=== PATIENT | female | born 1975 | race Caucasian/White ===

== ENCOUNTER → 2018-06-18 15:50 | Outpatient (CLI) | payer OTHER, SELFPAY ==
[2018-06-25 13:12] LABS: HPV Reflexed? NOT INDICATED
== END ==
PROVIDERS: Visit Provider Obstetrics & Gynecology
DX: Z12.4 Encounter for screening for malignant neoplasm of cervix (principal)
CPT/HCPCS: 88175; G0145

== ENCOUNTER → 2018-06-25 07:18 | Outpatient (CLI) | payer OTHER, SELFPAY ==
--- NOTE | 2018-06-25 07:22 | BI_ITS ---
MAMMOGRAPHY - BILATERAL SCREENING REASON FOR EXAM: Female, 42 years old. Routine annual screening examination. PERTINENT HISTORY: Non-contributory. TECHNIQUE: Digital bilateral breast lindsay (3D mammographic acquisition) in the CC and MLO projections. 2-D mediolateral oblique (MLO) and craniocaudad (CC) views of both breasts were obtained. CAD: Full Field Digital Mammography with Computer Added Detection was performed. COMPARISON: Comparison is made with prior study dated June 14, 2017 and December 11, 2013. FINDINGS: Breast Composition: There are scattered areas of fibroglandular density. There are no dominant masses or suspicious calcifications. No other significant abnormalities are identified. There has been no significant change since the prior study. BI/SCREENING MAMM (CAD), BILAT IMPRESSION: Stable bilateral screening mammogram. Yearly follow-up mammogram recommended. (A) ASSESSMENT CATEGORY: BIRADS Category 1: Negative. A letter regarding these results will be sent to the patient by the facility within 30 days. Approximately 10% of breast cancers are not detected by mammography. A normal mammogram should not delay biopsy of a clinically suspicious abnormality. [id number] Electronically Signed: Yosvany Kang MD at 8:17 EDT Tel [phone], Service support ,
== END ==
PROVIDERS: Family Provider Internal Medicine; PCP Internal Medicine; Referring Provider Obstetrics & Gynecology; Visit Provider Obstetrics & Gynecology
DX: Z12.31 Encounter for screening mammogram for malignant neoplasm of breast (principal)
CPT/HCPCS: 77063; 77067

== ENCOUNTER → 2018-11-12 06:20 | Outpatient (CLI) | payer OTHER, SELFPAY ==
--- NOTE | 2018-11-12 | LES_PTH ---
PATIENT: JACLYN STEPHENSON LOC: [facility] U#:[id number] AGE/SX: 49/F ROOM: RE11/12/[address]: Dr. Eddie Baez MD : 1975 BED: DIS: SPEC #: [id number] RECD: 11/12/18 17:23 STATUS: AIDAN ALESSANDRA #: [id number] SRIDEVI: 11/12/18 00:[address]: Eddie Baez DEPT: SURGICAL PATHOLOGY RECD BY: Erik Chu ENTERED: 11/13/18 10:30 SP TYPE: Lesion OTHR DR: Dr. Nikkie Wolf MD Tissues: Skin of eyelid, NOS Procedures: Surgery Specimen Level IV HEADER OPERATION: Excision of ABDULAZIZ lesion PRE-OP DIAGNOSIS: ABDULAIZZ lesion increased in size TISSUE SUBMITTED: ABDULAZIZ lesion MICROSCOPIC DIAGNOSIS Left upper eyelid lesion, biopsy: Intradermal nevus. AM:tri 11/14/18 COMMENT Case has been reviewed in consultation with Dr. Bartholomew who concurs with the above diagnosis. IDC:SJ MICROSCOPIC DESCRIPTION Slides are reviewed. GROSS DESCRIPTION Received in fixative is one container labeled with the patient's name and designated ABDULAZIZ lesion. The specimen consists of a fragment of pabno-white skin measuring 0.1 x 0.1 x 0.1 cm. The specimen is totally submitted in one cassette. / JORI:tri 11/13/18 TC:5 CPT: 32608
== END ==
PROVIDERS: Family Provider Internal Medicine; PCP Internal Medicine; Referring Provider Ophthalmology; Visit Provider Ophthalmology
DX: D22.121 Melanocytic nevi of left upper eyelid, including canthus (principal)
CPT/HCPCS: 88305

== ENCOUNTER → 2019-08-07 14:58 | Outpatient (CLI) | payer OTHER, SELFPAY ==
--- NOTE | 2019-08-07 15:03 | BI_ITS ---
MAMMOGRAPHY - BILATERAL SCREENING REASON FOR EXAM: Female, 43 years old. Routine annual screening examination. PERTINENT HISTORY: Non-contributory. TECHNIQUE: Digital bilateral breast rico (3D mammographic acquisition) in the CC and MLO projections. 2-D mediolateral oblique (MLO) and craniocaudad (CC) views of both breasts were obtained. CAD: Full Field Digital Mammography with Computer Added Detection was performed. COMPARISON: Comparison is made with prior study dated June 25, 2018 and June 14, 2017. FINDINGS: Breast Composition: There are scattered areas of fibroglandular density. There are no dominant masses or suspicious calcifications. Stable small benign-appearing bilateral axillary lymph nodes. No other significant abnormalities are identified. There has been no significant change since the prior study. BI/SCREEN MAMM (CAD) W/RICO BILAT IMPRESSION: Stable bilateral screening mammogram. Yearly follow-up mammogram recommended. (A) ASSESSMENT CATEGORY: BIRADS Category 2: Benign. A letter regarding these results will be sent to the patient by the facility within 30 days. Approximately 10% of breast cancers are not detected by mammography. A normal mammogram should not delay biopsy of a clinically suspicious abnormality. [id number] Electronically Signed: Yosvany Kang, at 8:26 EST , Service support ,
== END ==
PROVIDERS: Family Provider Internal Medicine; PCP Internal Medicine; Referring Provider Obstetrics & Gynecology; Visit Provider Obstetrics & Gynecology
DX: Z12.31 Encounter for screening mammogram for malignant neoplasm of breast (principal)
CPT/HCPCS: 77063; 77067

== ENCOUNTER → 2020-11-28 12:47 | Outpatient (CLI) | payer OTHER, SELFPAY ==
[2020-11-28 08:51] VITALS: BMI 35.9
[2020-11-30 13:33] LABS: HPV APTIMA, High Risk Negative (Negative)
== END ==
PROVIDERS: PCP Internal Medicine; Referring Provider Obstetrics & Gynecology; Visit Provider Obstetrics & Gynecology
DX: Z12.4 Encounter for screening for malignant neoplasm of cervix (principal)
CPT/HCPCS: 87624; 88175; G0145

== ENCOUNTER → 2021-05-30 08:23 | Outpatient (CLI) | payer OTHER, SELFPAY ==
--- NOTE | 2021-05-30 08:26 | BI_ITS ---
MAMMOGRAPHY - BILATERAL SCREENING 3-D TOMOSYNTHESIS REASON FOR EXAM: Female, 45 years old. screening PERTINENT HISTORY: No significant family history. TECHNIQUE: 2-D mammograms and 3-D Tomosynthesis of the breast (s) were performed. CAD was performed. COMPARISON: 08/07/2019 FINDINGS: The breast composition is composed of scattered fibroglandular density. Scattered benign calcifications are seen. No dense spiculated masses or suspicious microcalcifications are identified. No architectural distortion is identified. There is no skin thickening or retraction. There has been no significant change since the prior study. BI/SCRN MAMM (CAD)W/RICO BILAT IMPRESSION: No mammographic signs of malignancy. Routine yearly mammograms recommended. ASSESSMENT CATEGORY: BIRADS Category 1: Negative. A letter regarding these results will be sent to the patient by the facility within 30 days. FOLLOW UP RECOMMENDATION: Yearly follow up mammogram recommended. (A) Approximately 10% of breast cancers are not detected by mammography. A normal mammogram should not delay biopsy of a clinically suspicious abnormality. Electronically Signed: Leland Palma MD at 8:27 EDT Tel , Service support ,
== END ==
PROVIDERS: PCP Internal Medicine; Referring Provider Obstetrics & Gynecology; Visit Provider Obstetrics & Gynecology
DX: Z12.31 Encounter for screening mammogram for malignant neoplasm of breast (principal)
CPT/HCPCS: 77063; 77067

== ENCOUNTER → 2022-06-01 | Outpatient (CLI) | payer OTHER, SELFPAY ==
--- NOTE | 2022-06-01 08:07 | BI_ITS ---
MAMMOGRAPHY - BILATERAL SCREENING REASON FOR EXAM: Female, 46 years old. Routine annual screening examination. PERTINENT HISTORY: Non-contributory. TECHNIQUE: Digital bilateral breast rico (3D mammographic acquisition) in the CC and MLO projections. 2-D mediolateral oblique (MLO) and craniocaudad (CC) views of both breasts were obtained. CAD: Full Field Digital Mammography with Computer Added Detection was performed. COMPARISON: Comparison is made with prior examination 05/30/2021 and 08/07/2019. FINDINGS: Breast Composition: There are scattered areas of fibroglandular density. There are no dominant masses or suspicious calcifications. Stable small benign-appearing bilateral axillary lymph nodes. No other significant abnormalities are identified. There has been no significant change since the prior study. BI/SCRN MAMM (CAD)W/RICO BILAT IMPRESSION: Stable bilateral screening mammogram. Yearly follow-up mammogram recommended. (A) ASSESSMENT CATEGORY: BIRADS Category 2: Benign. A letter regarding these results will be sent to the patient by the facility within 30 days. Approximately 10% of breast cancers are not detected by mammography. A normal mammogram should not delay biopsy of a clinically suspicious abnormality. [id number] Electronically Signed: Yosvany Kang MD at 9:24 EDT ,
== END | disposition home or self-care (01) ==
PROVIDERS: PCP Internal Medicine; Visit Provider Obstetrics & Gynecology
DX: Z12.31 Encounter for screening mammogram for malignant neoplasm of breast (principal)
CPT/HCPCS: 77063; 77067

== ENCOUNTER → 2023-06-03 | Outpatient (CLI) | payer OTHER, SELFPAY ==
--- NOTE | 2023-06-03 10:30 | BI_ITS ---
MAMMOGRAPHY - BILATERAL SCREENING REASON FOR EXAM: Female, 47 years old. Routine annual screening examination. PERTINENT HISTORY: Non-contributory. TECHNIQUE: Digital bilateral breast rico (3D mammographic acquisition) in the CC and MLO projections. 2-D mediolateral oblique (MLO) and craniocaudad (CC) views of both breasts were obtained. CAD: Full Field Digital Mammography with Computer Added Detection was performed. COMPARISON: Comparison is made with prior study dated June 01, 2022 and May 30, 2021. FINDINGS: Breast Composition: There are scattered areas of fibroglandular density. There are no dominant masses or suspicious calcifications. Stable small benign-appearing bilateral axillary lymph nodes. No other significant abnormalities are identified. There has been no significant change since the prior study. BI/SCRN MAMM (CAD)W/RICO BILAT IMPRESSION: Stable bilateral screening mammogram. Yearly follow-up mammogram recommended. (A) ASSESSMENT CATEGORY: BIRADS Category 2: Benign. A letter regarding these results will be sent to the patient by the facility within 30 days. Approximately 10% of breast cancers are not detected by mammography. A normal mammogram should not delay biopsy of a clinically suspicious abnormality. [id number] Electronically Signed: Yosvany Kang MD at 13:51 EDT ,
== END | disposition home or self-care (01) ==
PROVIDERS: PCP Internal Medicine; Referring Provider Obstetrics & Gynecology; Visit Provider Obstetrics & Gynecology
DX: Z12.31 Encounter for screening mammogram for malignant neoplasm of breast (principal)
CPT/HCPCS: 77063; 77067

== ENCOUNTER → 2023-06-07 | Outpatient (CLI) | payer OTHER, SELFPAY ==
[2023-06-07 10:19] LABS: Absolute Lymphocyte Count 1.74 X10^3/uL (0.83-4.51); Absolute Neutrophil Count 6.1 X10^3/uL (2.0-7.7); Basophil# 0.04 X10^3/uL; Basophil% 0.5 % (0-1); Eosinophil# 0.11 X10^3/uL; Eosinophils% 1.2 % (0-5); Hematocrit 42.6 % (37-47); Hemoglobin 13.5 g/dL (12.0-15.0); Lymphocyte # 1.74 X10^3/ul (0.83-4.51); Lymphocyte % 19.7 % (19-41); Mean Corp Hgb Conc 31.7 g/dL (32-36); Mean Corpuscular Hgb 29.3 pg (27.0-32.0); Mean Corpuscular Volume 92.6 fL (81-99); Mean Platelet Vol. 8.5 fl (6.2-12.0); Monocyte# 0.73 X10^3/uL; Monocyte% 8.3 % (0-10); NRBC Flagged by Analyzer 0 % (0-5); Neutrophil # 6.14 X10^3/uL (2.7-7.7); Neutrophil % 69.6 % (47-70); Platelet Count 430 K/mm3 (150-450); RBC Distribution Width CV 12.8 % (11.6-14.6); RBC Distribution Width SD 43.2 fl (35.1-43.9); White Blood Count 8.8 K/mm3 (4.4-11.0)
== END | disposition home or self-care (01) ==
PROVIDERS: PCP Internal Medicine; Referring Provider Obstetrics & Gynecology; Visit Provider Obstetrics & Gynecology
DX: N85.2 Hypertrophy of uterus (principal)
CPT/HCPCS: 36415; 85025

== ENCOUNTER → 2023-06-13 | Outpatient (CLI) | payer OTHER, SELFPAY ==
--- NOTE | 2023-06-13 13:03 | US_ITS ---
STUDY: ULTRASOUND OF THE FEMALE PELVIS - COMPLETE REASON FOR EXAM: Female, 47 years old. Pelvic pain and fullness LMP: 05/22/2023 TECHNIQUE: Transabdominal and Transvaginal TECHNICAL QUALITY: Adequate. COMPARISON: None. FINDINGS: The uterus is anteverted and is in a midline position. The uterus measures 10.0 x 5.0 x 4.4 cm. Normal uterine cervix. The endometrium measures 6.6 mm in thickness, and is hyperechoic. There is no demonstrated endometrial mass. There is no demonstrated myometrial mass. I.U.D. - The patient does not have an I.U.D. The right ovary is visualized. The right ovary measures 3.3 x 2.8 x 2.1 cm. There is no right ovarian cyst or ovarian mass. There is no visualized right adnexal mass or complex lesion. There is normal arterial and normal venous vascularity. The left ovary is visualized. The left ovary measures 3.5 x 2.4 x 1.9 cm. There is no left ovarian cyst or ovarian mass. There is no visualized left adnexal mass or complex lesion. There is normal arterial and normal venous vascularity. There is no fluid in the cul-de-sac. The bladder is normally distended with capacity of 534 mL. No significant postvoid residual noted US/Pelvic w/ Transvaginal IMPRESSION: No suspicious sonographic findings Electronically Signed: Blayne Gomez MD at 18:25 EDT ,
== END | disposition home or self-care (01) ==
LOC: US 13:03
PROVIDERS: PCP Internal Medicine; Referring Provider Obstetrics & Gynecology; Visit Provider Obstetrics & Gynecology
DX: N85.2 Hypertrophy of uterus (principal)
CPT/HCPCS: 76830; 76856

== ENCOUNTER → 2024-06-11 | Outpatient (CLI) | payer OTHER, SELFPAY ==
--- NOTE | 2024-06-11 07:56 | BI_ITS ---
MAMMOGRAPHY - BILATERAL SCREENING 3-D TOMOSYNTHESIS REASON FOR EXAM: Female, 48 years old. screening mammogram PERTINENT HISTORY: No significant family history. TECHNIQUE: 2-D mammograms and 3-D Tomosynthesis of the breast (s) were performed. CAD was performed. COMPARISON: 06/03/2023 FINDINGS: The breast composition is composed of scattered fibroglandular density. Scattered benign calcifications are seen. No dense spiculated masses or suspicious microcalcifications are identified. No architectural distortion is identified. There is no skin thickening or retraction. There has been no significant change since the prior study. BI/SCRN MAMM (CAD)W/RICO BILAT IMPRESSION: No mammographic signs of malignancy. Routine yearly mammograms recommended. ASSESSMENT CATEGORY: BIRADS Category 1: Negative. A letter regarding these results will be sent to the patient by the facility within 30 days. FOLLOW UP RECOMMENDATION: Yearly follow up mammogram recommended. (A) Approximately 10% of breast cancers are not detected by mammography. A normal mammogram should not delay biopsy of a clinically suspicious abnormality. Electronically Signed: Leland Palma MD at 13:54 EDT ,
== END | disposition home or self-care (01) ==
PROVIDERS: PCP Internal Medicine; Referring Provider Obstetrics & Gynecology; Visit Provider Obstetrics & Gynecology
DX: Z12.31 Encounter for screening mammogram for malignant neoplasm of breast (principal)
CPT/HCPCS: 77063; 77067

== ENCOUNTER → 2025-06-07 | Outpatient (CLI) | payer SELFPAY ==
[2025-06-10 16:09] LABS: HPV APTIMA, High Risk Negative (Negative)
== END | disposition home or self-care (01) ==
LOC: LABSPEC 12:12
PROVIDERS: PCP Internal Medicine; Referring Provider Obstetrics & Gynecology; Visit Provider Obstetrics & Gynecology
DX: Z12.4 Encounter for screening for malignant neoplasm of cervix (principal)
CPT/HCPCS: 87624; 88175; G0145

== ENCOUNTER → 2025-06-25 | Outpatient (CLI) | payer SELFPAY ==
--- NOTE | 2025-06-25 08:15 | BI_ITS ---
EXAM: SCRN MAMM (CAD)W/RICO BILAT DATE: 06/25/2025 CLINICAL HISTORY: F, Age 49 y/o , SCREENING MAMMOGRAM TECHNIQUE: Procedure Code: [id number] Modality: MG Procedure: SCRN MAMM (CAD)W/RICO BILAT COMPARISON: Prior exam(s) dated 06/11/2024, 06/03/2023. FINDINGS: TISSUE DENSITY: There are scattered areas of fibroglandular density. Bilateral Breast Mammographic Findings: No significant masses, calcifications or other abnormalities are identified. BI/SCRN MAMM (CAD)W/RICO BILAT IMPRESSION: There is no mammographic evidence of malignancy. OVERALL FINAL ASSESSMENT BI-RADS 1: NEGATIVE. RECOMMENDATION: Routine annual follow-up in 1 Year Additional Recommendation none A letter with findings and recommendations will be mailed to the patient. Reading Location: [id number]
--- OUTSIDE RECORDS SUMMARY | 2025-06-25 08:35 | XMS RPT_ITS | CCD ---
Author Organization [facility] Care Team Providers Care V Belt Finisher Name Role Phone Joseph Wolf MD Primary Care Provider Dr. Joesph Wolf Primary Care Provider Dr. Joesph Wolf Referring Provider Dr. Haylie Clark Attending Provider Joesph Wolf MD Primary Care Provider Joesph Wolf MD Primary Care Provider Joesph Wolf Primary Care Provider SARAH WILLS Attending Unavailable JOESPH WOLF Primary Care Unavailable Dr. Joesph Wolf MD Primary Care Physician Dr. Joesph Wolf MD Referring Provider Dr. Haylie Clark MD Attending Physician Dr. Haylie Clark MD Referring Provider Joesph Wolf Primary Care Unavailable Haylie Clark Attending Unavailable Haylie Clark Referring Unavailable Joesph Wolf Primary Care Unavailable Haylie Clark Attending Unavailable Haylie Clark Referring Unavailable Joesph Wolf Primary Care Unavailable Joesph Wolf Referring Unavailable Haylie Clark Attending Unavailable Allergies Allergy Classification Reported Allergen(s) Allergy Type Date of Onset Reaction(s) Facility (10 sources) environmental [Other] Propensity to adverse reactions 200 5 [facility] Work Phone: Medications Current Medications Medication Drug Class(es) Dates Sig (Normalized) Sig (Original) levocetirizine dihydrochloride 5 mg oral tablet (13 sources) Histamine-1 Receptor Antagonist Start: 06-24-2024 take 1 tablet by mouth once daily as needed levocetirizine (XYZAL) 5 mg tablet Take 1 tablet by mouth once daily as needed. In the evening 90 tablet 3 06/24/2024 Active Start: 05-31-2021 End: 06-24-2024 take 1 tablet by mouth once daily as needed levocetirizine (XYZAL) 5 mg tablet Take 1 tablet by mouth once daily as needed. In the evening 30 tablet 11 12/20/2023 06/24/2024 Discontinued Comment on above: Take 1 tablet by kasey th once daily as needed. In the evening levothyroxine sodium 0.112 mg oral tablet (20 sources) l-Thyroxine Start: 06-24-20 take 1 tablet by mouth once daily for thyroid dysfunction levothyroxine (LEVOXYL) 112 mcg tablet Indications: Acquired hypothyroidism Take 1 tablet by mouth once daily. Take on empty stomach. For thyroid. Mylan brand pelase 90 tablet 3 06/24/2024 Active Start: 06-25-2022 Start: 06-25-2022 take 112 ug by mouth once daily Levothyroxine Active 112 MCG PO DAILY June 25, 2022 2:31pm Start: 10-25-2021 End: 06-24-2024 levothyroxine (LEVOXYL) 112 mcg tablet Indications: Acquired hypothyroidism Take 1 tablet by mouth once daily. Take on empty stomach. For thyroid. Patient should start on October 25, 2023. 90 tablet 3 10/25/2023 06/24/2024 Discontinued Start: 11-28-2020 End: 06-25-2022 take 1 tablet by mouth once daily Levothyroxine 75 mcg tablet Discontinued 75 ug PO DAILY November 28, 2020 12:00am June 25, 2022 2:31pm Comment on above: Take 1 tablet by kasey th once daily. Take on empty stomach. For thyroid. Take 1 tablet by kasey th once daily. Take on empty stomach. For thyroid. Patient should start on October 25, 2023. mometasone furoate 0.05 mg/actuat metered dose nasal spray (12 sources) Corticosteroid Start: take 2 spray(s) by mouth once daily mometasone (NASONEX) 50 mcg/actuation nasal spray Use 2 Sprays in the nose once daily. Rinse mouth after use. 1 g 5 12/20/2023 Active Start: 05-19-2019 End: 12-20-2023 take 2 spray(s) by mouth once daily mometasone (NASONEX) 50 mcg/actuation nasal spray Use 2 Sprays in the nose once daily. Rinse mouth after use. 1 Bottle 11 05/19/2019 12/20/2023 Discontinued Comment on above: Use 2 Sprays in the nose once daily. Rinse mouth after use. Problems Active Problems Problem Classification Problem Date Documented Da te Episodic/Chronic Administrative/social admission (2 sources) Persons encountering health services in other specified circumstances; Translations: [Persons encountering health services in other specified circumstances] Onset: 12-24-2024 Episodic Allergic reactions (1 source) Solar degeneration; Translations: [Other skin changes due to chronic exposure to nonionizing radiation] 12-24-2024 Episodic Diabetes mellitus without complication (3 sources) Impaired fasting glycemia; Translations: [Impaired fasting glucose] 06-03-2023 Episodic Genitourinary symptoms and ill-defined conditions (8 sources) Genuine stress incontinence; Translations: [Stress incontinence (female) (male)] 11-28-2020 Chronic Comment on above: urogyn consult if de sired Immunizations and screening for infectious disease (1 source) Hepatitis B screening required; Translations: [Encounter for screening for other viral diseases] 06-22-2024 Episodic Malaise and fatigue (1 source) Fatigue; Translations: [Other fatigue] 11-02-2023 Episodic Nutritional deficiencies (1 source) Vitamin D deficiency; Translations: [Vitamin D deficiency, unspecified] 06-24-2024 Chronic Other aftercare (1 source) Long-term current use of drug therapy; Translations: [Other 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) drug therapy] 06-24-2024 Episodic Other and unspecified benign neoplasm (1 source) Multiple benign melanocytic nevi ; Translations: [Melanocytic nevi of right upper limb, including shoulder] 12-24-2024 Episodic Other and unspecified benign neoplasm (1 source) Senile angioma; Translations: [Hemangioma of skin and subcutaneous tissue] 12-24-2024 Episodic Other and unspecified benign neoplasm (2 sources) Melanocytic nevi of right upper limb, including shoulder; Translations: [Melanocytic nevi of right upper limb, including shoulder] Onset: 12-24-2024 Episodic Other and unspecified benign neoplasm (2 sources) Melanocytic nevi of trunk; Translations: [Melanocytic nevi of trunk] Onset: 12-24-2024 Episodic Other and unspecified benign neoplasm (2 sources) Melanocytic nevi of left upper limb, including shoulder; Translations: [Melanocytic nevi of left upper limb, including shoulder] Onset: 12-24-2024 Episodic Other and unspecified benign neoplasm (2 sources) Melanocytic nevi of right lower limb, including hip; Translations: [Melanocytic nevi of right lower limb, including hip] Onset: 12-24-2024 Episodic Other and unspecified benign neoplasm (2 sources) Melanocytic nevi of left lower limb, including hip; Translations: [Melanocytic nevi of left lower limb, including hip] Onset: 12-24-2024 Episodic Other and unspecified benign neoplasm (2 sources) Hemangioma of skin and subcutaneous tissue; Translations: [Hemangioma of skin and subcutaneous tissue] Onset: 12-24-2024 Episodic Other female genital disorders (4 sources) Enlarged uterus; Translations: [Hypertrophy of uterus] 06-07-2023 Episodic Comment on above: cbc and ultrasound o rdered Other female genital disorders (3 sources) Hypertrophy of uterus; Translations: [Hypertrophy of uterus] 06-07-2023 Episodic Other nutritional; endocrine; and metabolic disorders (4 sources) Obesity; Translations: [Other obesity due to excess calories] Onset: 01-14-2018 01-14-2018 Chronic Other nutritional; endocrine; and metabolic disorders (9 sources) Obesity caused by energy imbalance; Translations: [Other obesity due to excess calories] Onset: 01-14-2018 01-14-2018 Chronic Other nutritional; endocrine; and metabolic disorders (7 sources) Obese class II; Translations: [Obesity, unspecified] Onset: 06-12-2023 06-12-2023 Chronic Other screening for suspected conditions (not mental disorders or infectious disease) (17 sources) Patient encounter status; Translations: [Encounter for screening for lipoid disorders] Onset: 09-22-2007 Resolved: 06-14-2016 Episodic Other skin disorders (1 source) Solar lentigo; Translations: [Other melanin hyperpigmentation] 12-24-2024 Episodic Other skin disorders (1 source) Seborrheic keratosis; Translations: [Other seborrheic keratosis] 12-24-2024 Episodic Other skin disorders (1 source) Scar; Translations: [Scar conditions and fibrosis of skin] 12-24-2024 Episodic Other skin disorders (1 source) Milia; Translations: [Epidermal cyst] 12-24-2024 Episodic Other skin disorders (1 source) Multiple skin tags; Translations: [Other hypertrophic disorders of the skin] 12-24-2024 Episodic Other skin disorders (2 sources) Other melanin hyperpigmentation; Translations: [Other melanin hyperpigmentation] Onset: 12-24-2024 Episodic Other skin disorders (2 sources) Other seborrheic keratosis; Translations: [Other seborrheic keratosis] Onset: 12-24-2024 Episodic Other skin disorders (2 sources) Scar conditions and fibrosis of skin; Translations: [Scar conditions and fibrosis of skin] Onset: 12-24-2024 Episodic Other skin disorders (2 sources) Epidermal cyst; Translations: [Epidermal cyst] Onset: 12-24-2024 Episodic Other skin disorders (2 sources) Other hypertrophic disorders of the skin; Translations: [Other hypertrophic disorders of the skin] Onset: 12-24-2024 Episodic Other upper respiratory disease (11 sources) Allergic rhinitis; Translations: [Allergic rhinitis, unspecified] Onset: 03-18-2007 06-14-2016 Chronic Thyroid disorders (17 sources) Acquired hypothyroidism; Translations: [Hypothyroidism, unspecified] Chronic Varicose veins of lower extremity (16 sources) Varicose veins of lower extremity; Translations: [Varicose veins of bilateral lower extremities with other complications] Onset: 12-28-2011 Resolved: 06-14-2016 12-28-2011 Episodic Past or Other Problems Problem Classification Problem Date Documented Da te Episodic/Chronic Conditions associated with dizziness or vertigo (11 sources) Dizziness and giddiness; Translations: [Dizziness and giddiness] Onset: 06-14-2016 08-22-2021 Episodic Unclassified (5 sources) endovenous laser ablation therapy 03-24-2022 Comment on above: left leg Results Test Name Value Interpretation Reference Range Facility PAP IG HPV APTIMA 16/18,45on 06-10-2025 ADEQ Comment Normal . [facility] Comment on above: Order Comment: Speci men Comment: [id number] Specimen Comment: No. of containers..01 ThinPrep Vial Result Comment: Sati sfactory for evaluation. No endocervical component is identified. Performed By: #### L 7400.0280 #### [facility] [address] [place], [address] COMM . Normal . [facility] Comment on above: Order Comment: Speci men Comment: [id number] Specimen Comment: No. of containers..01 ThinPrep Vial Performed By: #### L 7400.0280 #### [facility] [address] [place], [address] COMMENT Comment Normal . [facility] Comment on above: Order Comment: Speci men Comment: [id number] Specimen Comment: No. of containers..01 ThinPrep Vial Result Comment: This liquid based ThinPrep(R) pap test was interpreted using the [employer] Near Me(R) Genius(TM) Cervical Algorithm whole slide imaging system. Performed By: #### L 7400.0280 #### [facility] [address] [place], [address] DIAG Comment Normal . [facility] Comment on above: Order Comment: Speci men Comment: [id number] Specimen Comment: No. of containers..01 ThinPrep Vial Result Comment: NEGA TIVE FOR INTRAEPITHELIAL LESION OR MALIGNANCY. Performed By: #### L 7400.0280 #### [facility] [address] [place], [address] HPV APTIMA, HR Negative Normal Negative [facility] Comment on above: Order Comment: Speci men Comment: [id number] Specimen Comment: No. of containers..01 ThinPrep Vial Result Comment: This nucleic acid amplification test detects fourteen high- risk HPV types (16,18,31,33,35,39,45,51,52,56,58,59,66,68) without differentiation. Performed By: #### L 7400.0280 #### [facility] [address] [place], [address] HPV Rena Rfx Comment Normal . [facility] Comment on above: Order Comment: Speci men Comment: [id number] Specimen Comment: No. of containers..01 ThinPrep Vial Result Comment: Crit pallavi not met, HPV Genotype not performed. Performed at: - [facility] [id number] Regional Facilities Specialist: Leigh Schilling MD, Phone: [phone] Performed at: = - [facility] [id number] Regional Facilities Specialist: Leigh Schilling MD, Phone: [phone] Performed By: #### L 7400.0280 #### [facility] [address] [place], [address] PAPSMR Comment Normal . [facility] Comment on above: Order Comment: Speci men Comment: [id number] Specimen Comment: No. of containers..01 ThinPrep Vial Result Comment: The Pap smear is a screening test designed to aid in the detection of premalignant and malignant conditions of the uterine cervix. It is not a diagnostic procedure and should not be used as the sole means of detecting cervical cancer. Both false-positive and false-negative reports do occur. Performed By: #### L 7400.0280 #### [facility] [address] [place], [place], [id number] PERFORM Comment Normal . [facility] Comment on above: Order Comment: Speci men Comment: [id number] Specimen Comment: No. of containers..01 ThinPrep Vial Result Comment: Bri Mullins, Fire Prevention Forester (ASCP) Performed By: #### L 7400.0280 #### [facility] [address] [place], [address] Cervical or vaginal specimen microscopic examination by liquid based cytology (reportOrdered By: Haylie Clark on 06-07-2025 Cytology report Cyto stain.thin prep Doc (Cvx/Vag) Comment . [facility] Comment on above: Criteria not met, HP V Genotype not performed.Performed at: WB - [facility] [id number] Director: Leigh Schilling MD, Phone: [phone] at: =G - [facility] [address] [id number] Director: Leigh Schilling MD, Phone: [phone] Cervical or vagninal specime n microscopic examination by cytology stain (reported asOrdered By: Haylie Clark on 06-07-2025 Cytology report Cyto stain Doc (Cvx/Vag) Comment . [facility] Comment on above: The Pap smear is a s creening test designed to aid in thedetection of premalignant and malignant conditions of theuterine cervix. It is not a diagnostic procedure andshould not be used as the sole means of detecting cervicalcancer. Both false-positive and false-negative reports dooccur. Detection in cervical specim en of any of human papilloma virus (HPV) 16, 18, 31, 33,Ordered By: Haylie Clark on 06-07-2025 HPV 16+18+31+33+35+39+45+5 1+52+56+58+59+66+68 DNA Probe+sig amp Ql (Cvx) Negative Negative [facility] Comment on above: This nucleic acid am plification test detects fourteen high- risk HPV types (16,18,31,33,35,39,45,51,52,56,58,59,66,68)without differentiation. Laboratory - CytologyOrdered By: Haylie Clark on 06-07-2025 Fire Prevention Forester Cyto stain Nom (Cvx/Vag) [ID] Comment . [facility] Comment on above: Bri Mullins, Cytolog ist (ASCP) Laboratory - Miscellaneous t estsOrdered By: Haylie Clark on 06-07-2025 Service comment (Unsp spec) [Interp] . . [facility] No Panel InformationOrdered By: Haylie Clark on 06-07-2025 Pap Smear Specimen Adequacy Comment . [facility] Comment on above: Satisfactory for omid luation. No endocervical component is identified. Electricity Trading Analyst Office Visit Reporton 06-07-2025 Electricity Trading Analyst Office Visit Report [facility] [address], [address] [place] [address] OFFICE VISIT Date of Service: 06/07/25 MR#: [id number] Acct: [id number] Name: MICHELA SCHMIDT Rep #: [id number] : 1975 Provider: Dr. 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) Acquisition Lead Required: No Is patient in pain?: No Allergies No Known Allergies Allergy (Verified 06/07/25 10:08) Medications ???Medication ???Instructions ???Recorded ???Confirmed ???Type levothyroxine 75 mcg tablet 112 mcg PO DAILY 06/25/22 06/07/25 History Is last menstrual period known: Yes Last Menstrual Period: 05/25/25 Post menopausal: No Patient : No : No Control Method: Vasectomy [facility] Medical History Thyroid disorder endovenous laser ablation therapy Surgical History H/O vein stripping H/O section History of wisdom tooth extraction, class IV edentulism History of cholecystectomy ( 1996) Family History Father Heart disease Hypertension Diabetes Mother Hypertension Diabetes Hypercholesteremia Social History household members: family housing: house number of children: 3 current occupational status: employed 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 Date Name GA/Weeks Outcome Route Bth Weight Infant Gen Labor Lgth Anesthesia Del Locatn Provider FOB Unknown 06/26/2003 [place] Unknown 01/25/2003 Jose G Unknown 03/12/2011 [place] HPI Encounter for routine gynecological examination Details: MICHELA SCHMIDT is a 49 year old who presents for annual exam. Last PAP: 11/28/2020 - normal History of abnormal PAP: Last mammogram: 06/11/2024 - normal History of abnormal mammogram: Colon cancer screening: colonoscopy - at age 46, negative results Other preventative health care screenings: PCP Maryann Female Reproductive History Last Menstrual Period: 05/25/25 Cycle Length: 21-35 Bleeding Duration: 5 Questions: metrorrhagia: No, sexually active: Yes, dyspareunia: No and PCB: No Menopausal Symptoms: No hot flashes, No night sweats, No weight change, No mood changes, No difficulty concentrating, No sleep problems and No change in libido ROS Const Constitutional: Reports as per HPI; Denies fatigue, increased appetite, poor appetite, night sweats, weight gain or weight loss Cardio Card: Denies chest pain Resp Resp: Denies cough or dyspnea GI GI: Reports as per HPI; Denies abdominal pain, bloating, constipation, nausea or vomiting : Reports as per HPI, urinary incontinence and other; Denies difficulty voiding, dysuria, hematuria, hot flashes, nipple discharge, pelvic pain, prolapse symptoms, urinary frequency, urinary urgency, vaginal discharge, vaginal dryness, vaginal odor or vaginal pruritus Skin Skin/Breast: Denies changing lesions, breast mass, breast pain, breast skin changes or nipple discharge Psych Psych: Denies anxiety, change in libido, depression or difficulty concentrating Exam Const General: cooperative, healthy appearing, comfortable, no acute distress, well developed and well groomed HENMT Head: normal to inspection and normocephalic Ears: hearing grossly normal bilaterally and external ears normal Nose: external nose normal Face and sinus: normal facial exam Neck Neck: normal visual inspection, full ROM and no lymphadenopathy Thyroid: thyroid normal Chest Chest palpation inspection: normal inspection of the chest Breast inspection: normal inspection of the breasts and normal inspection of the axillae Breast palpation: normal palpation of the breasts, normal palpation of the axillae and no axillary lymphadenopathy Resp Effort Inspection: normal respiratory effort GI Inspection: normal to inspection and non-distended Palpation: soft, no hepatosplenomegaly and no guarding General: bladder normal to palpation External Female Exam: normal external appearance, normal appearance o (more content not included)... Normal [facility] 37on 12-24-2024 37 Serica cream Mineral suncreen Normal [facility] Office Visiton 12-24-2024 Follow-up visit [id number] Mey Schmidt diogenes 1975 F Date Provider Department Center 12/24/2024 SARAH FIGUEROA [facility] None No family history on file Level of Service:01166 HI OFFICE/OUTPATIENT ESTABLISHED LOW [facility] 20 MIN Reason for Visit and Comments: Follow-up [[id number]] - [facility]-11/20/2022[place] [facility] Progress Noteon 12-24-2024 Progress Note DATE OF SERVICE: 12/24/2024 PATIENT NAME: Michela Schmidt : 1975 AGE: 49 y.o. CLINIC NUMBER: [id number] Visit type: Established patient Chief Complaint Patient presents with Follow-up [facility]-11/20/2022,[place] Subjective HISTORY OF PRESENT ILLNESS: This is a 49 y.o. female who presents for evaluation of skin lesions; last seen 11/20/2022 with Sarah Wills PA-C. Patient has no specific spots in particular she wants looked at. Patient has no h/o of ATN. Patient has no h/o of AKs. Patient has no personal h/o skin cancer. Patient has no family h/o melanoma. History of pacemaker/ defibrillator? No History of HIV/ Hep C? No Allergies to Lidocaine, Epinephrine, Latex or Adhesive? No Review of Systems There were no vitals filed for this visit. PHYSICAL EXAM GENERAL APPEARANCE:?Alert & oriented x3, pleasant. Well developed, well nourished. PSYCH: appropriate mood and affect DERMATOLOGY: (all measurements are in cm, unless otherwise noted) 1. Actinic skin damage Skin shows depigmentation, telangiectasia's, and reduced elasticity The nature of sun-induced photo-aging and skin cancers was discussed. Sun avoidance, protective clothing, and the use of Broad spectrum (UVA and UVB) minimum 30-SPF sunscreens is advised. Apply sunscreen 30 minutes prior to sun exposure, and reapply every 2 hours and as needed after swimming or sweating. Observe closely for skin damage/changes, and call if such occurs. Recommended Adapalene 0.1% gel-sample trade given to use 2 times weekly at night then increase as tolerated. Stressed importance of wearing sunscreen SPF 30 or greater every morning Sample of Miranda Posay Jenna cream to help with pigmentation under her eyes 2. Encounter for skin care SKIN TYPE: II Educated on signs of skin cancer, skin cancer causes, prevention, and risk of developing skin cancers in the future. Sun protection measures reviewed, recommended monthly self skin exams and annual full skin exam. Mineral sunscreen are recommended to avoid burning of the eyes-several OTC options given along with samples to try. 3. Solar lentigo Light brown well-circumscribed macule(s) Educated and reassured, benign finding secondary to sun exposure. Patient educated on the proper use of sunscreen, SPF, and how often to reapply. Recommend use of OTC mineral sun block, like Neutrogena or La-Jerry Posay. Patient advised to look for zinc or titanium as the active ingredient(s). Try to limit sun exposure to motor tune up specialist or late evening hours. Patient advised to perform self-skin checks and call for follow up appointment if any new or concerning lesions detected. 4. Seborrheic keratosis (7) Generalized, Left Forearm - Posterior, Left Hand - Posterior, Left Wrist - Posterior, Right Forearm - Posterior, Right Hand - Posterior, Right Wrist - Posterior Pabon-brown waxy papule(s) and plaque(s) Reassured that this is a benign lesion and does not require any treatment. Educated that if the lesion changes color, becomes larger, bleeds, becomes bothersome or painful then it should be reevaluated. Patient expresses understanding and is agreeable to plan. 5. Multiple benign melanocytic nevi of both upper extremities, both lower extremities, and trunk Scattered uniform pabon/brown nevoid macules and papules; showing normal patterns with dermoscopy Reassured that this is a benign lesion and does not require any treatment. Educated that if the lesion changes color, becomes larger, bleeds, becomes bothersome or painful then it should be reevaluated. Patient expresses understanding and is agreeable to plan. 6. Philip angioma Bright red vascular papule(s) Reassured that this is a benign lesion and does not require any treatment. Educated that if the lesion changes color, becomes larger, bleeds, becomes bothersome or painful then it should be reevaluated. Patient expresses understanding and is agreeable to plan. 7. Scar Right Breast Erythematous linear recent scar secondary to mole removed from [facility] Reassured that this is a benign lesion and does not require any treatment. Educated that if the lesion changes color, becomes larger, bleeds, becomes bothersome or painful then it should be reevaluated. Patient expresses understanding and is agreeable to plan. Recommended Serica scar gel cream and to massage area several times daily. Coupon given. 8. Milia Mid Forehead Firm white papule(s) Reassured that this is a benign lesion and does not require any treatment. Educated that if the lesion changes color, becomes larger, bleeds, becomes bothersome or painful then it should be reevaluated. Patient expresses understanding and is agreeable to plan. 9. Skin tags, multiple acquired (2) Neck - Anterior, Right Breast Flesh colored pedunculated papule(s) without signs of irritation/inflammatio n. Reassured that this is a benign lesion and does not require any treatment. Educated that if (more content not included)... Normal [facility] Absolute lymphocyte countOrd ered By: Haylie Clark on 06-07-2023 Lymphocytes Auto (Unsp spec) [#/Vol] 1.74 10*3/uL 0.83-4.51 [facility] Basophil percentageOrdered B y: Haylie Clark on 06-07-2023 Basophils/100 WBC (Bld) 0.5 % 0-1 [facility] Eosinophils/100 WBC (Bld) 1.2 % 0-5 [facility] Neutrophils (Bld) [#/Vol] 6.1 10*3/uL 2.0-7.7 [facility] Neutrophils/100 WBC (Bld) 69.6 % 47-70 [facility] WBC (Bld) [#/Vol] 8.8 10*3/uL 4.4-11.0 [facility] Blood erythrocytes count (nu mber/volume)Ordered By: Haylie Clark on 06-07-2023 RBC (Bld) [#/Vol] 4.60 10*6/uL 4.2-5.4 [facility] Blood hemoglobin measurement (mass/volume)Ordered By: Haylie Clark on 06-07-2023 Hemoglobin (Bld) [Mass/Vol] 13.5 g/dL 12.0-15.0 [facility] Blood lymphocytes/100 leukoc ytesOrdered By: Haylie Clark on 06-07-2023 Lymphocytes/100 WBC (Bld) 19.7 % 19-41 [facility] Blood monocytes/100 leukocyt esOrdered By: Haylie Clark on 06-07-2023 Monocytes/100 WBC (Bld) 8.3 % 0-10 [facility] Blood platelet mean volumeOr dered By: Haylie Clark on 06-07-2023 Platelet mean volume (Bld) [Entitic vol] 8.5 fL 6.2-12.0 [facility] Determination of erythrocyte mean corpuscular volume (MCV)Ordered By: Haylie Clark on 06-07-2023 MCV (RBC) [Entitic vol] 92.6 fL 81-99 [facility] Hematocrit Auto (Bld) [Volum e fraction]Ordered By: Haylie Clark on 06-07-2023 Hematocrit (Bld) [Volume fraction] 42.6 % 37-47 [facility] Laboratory - Hematology and Cell countsOrdered By: Haylie Clark on 06-07-2023 Erythrocyte distribution width (RBC) [Entitic vol] 43.2 fL 35.1-43.9 [facility] Erythrocyte distribution width (RBC) [Ratio] 12.8 % 11.6-14.6 [facility] Immature granulocytes/100 WBC (Bld) 0.700 % 0.0-0.9 [facility] Comment on above: IG% - Immature Granu locytes (promyelocytes, myelocytes and metamyelocytes) > 1% indicates that a LEFT SHIFT is Present. MCH (RBC) [Entitic mass] 29.3 pg 27.0-32.0 [facility] Nucleated RBC/100 WBC (Bld) [Ratio] 0 % 0-5 [facility] MCHC Auto (RBC) [Mass/Vol]Or dered By: Haylie Clark on 06-07-2023 MCHC (RBC) [Mass/Vol] 31.7 g/dL 32-36 [facility] Platelets bldOrdered By: Jonathan Clark on 06-07-2023 Platelets (Bld) [#/Vol] 430 10*3/uL 150-450 [facility] COLONOSCOPY SCREENINGon 12- [facility] CNOVon 10-27-2021 CNOV Office Visit (FAMPWS ) MICHELA SCHMIDT ([id number]) 1975 F Date Time Provider Department 10/27/21 1:20 PM ORQUIDEA VICTOR During your visit today, we recorded the following information about you: Temperature Pulse Respiration Blood pressure 97 degrees 75/minute 16/minute 104/62 Weight 91.6 kg Orquidea Victor APRN.[employer] 10/27/2021 1:58 PM Signed Patient presents with: Sinus Problem: 5 days HPI: Michela Schmidt is a 46 year old female who presents to the office today for review of health conditions. She is an established patient of Dr. Wolf and new to me today. Concerns today: Starting 4 days ago, drainage down her throat, and then progressed. Nasal congestion, face pain, teeth pain, coughing a bit r/t the drainage. Advil does offer some relief. Sudafed helps somewhat-makes her a bit loopy. No known sick contacts. No fevers. Does have recurrent sinus infections-a couple/year. Last 3 Encounter BP Readings: Date: BP: 10/27/2021 104/62 05/31/2021 102/80 05/25/2020 112/74 PAST MEDICAL HISTORY Diagnosis Date - Hypothyroidism - Nonspecific abnormal results of thyroid function study - VV (varicose veins) PAST SURGICAL HISTORY Procedure Laterality Date - , CLASSIC, IN-HOSP CARE x2 - CHOLECYSTECTOMY 1998 Cholecystectomy - PAST SURGICAL HISTORY OF bilateal GSV EV LT, right Social History Tobacco Use - Smoking status: Never Smoker - Smokeless tobacco: Never Used Substance Use Topics - Alcohol use: No - Drug use: No FAMILY HISTORY Problem Relation Age of Onset - Hypertension Mother - Lipids Mother - Diabetes Mother Type 2 - Hypertension Father - Lipids Father - Coronary Artery Disease Father - COPD Father - Diabetes Father Type 2 - Diabetes Sister Type 2 - Thyroid Sister hypothyroid--Harris s (confirmed) - other (colon polyp) Sister - Thyroid Sister hypothyroid--Harris s (?) - other (Colon polyps) Brother - other (Colon polyps) Brother - other (Thyroid cancer) Maternal Aunt - Colon Cancer Other 85 Allergies: ALLERGIES Allergen Reactions - Environmental [Othe* multiple grasses, trees, cat and dog Current Meds: levothyroxine (LEVOXYL) 112 mcg tablet Take 1 tablet by mouth once daily. Take on empty stomach. For thyroid. levocetirizine (XYZAL) 5 mg tablet Take 1 tablet by mouth once daily as needed. In the evening mometasone (NASONEX) 50 mcg/actuation nasal spray Use 2 Sprays in the nose once daily. Rinse mouth after use. Review of Systems All other systems reviewed and are negative. See HPI PE: 10/27/21 1331 BP: 104/62 Pulse: 75 Resp: 16 Temp: 36.1 ?C (97 ?F) TempSrc: Tympanic SpO2: 99% Weight: 91.6 kg (202 lb) Physical Exam Vitals and nursing note reviewed. Constitutional: Appearance: Normal appearance. HENT: Head: Normocephalic and atraumatic. Right Ear: Hearing, ear canal and external ear normal. Tympanic membrane is perforated. Left Ear: Hearing, tympanic membrane, ear canal and external ear normal. Ears: Comments: Likely chronic perforation Nose: Congestion present. Right Turbinates: Pale. Left Turbinates: Pale. Right Sinus: Maxillary sinus tenderness and frontal sinus tenderness present. Left Sinus: Maxillary sinus tenderness and frontal sinus tenderness present. Mouth/Throat: Mouth: Mucous membranes are moist. Pharynx: Oropharynx is clear. No oropharyngeal exudate or posterior oropharyngeal erythema. Cardiovascular: Rate and Rhythm: Normal rate and regular rhythm. Pulses: Normal pulses. Heart sounds: Normal heart sounds. Pulmonary: Effort: Pulmonary effort is normal. Breath sounds: Normal breath sounds. Musculoskeletal: Cervical back: Normal range of motion and neck supple. Neurological: General: No focal deficit present. Mental Status: She is alert and oriented to person, place, and time. Psychiatric: Mood and Affect: Mood normal. Behavior: Behavior normal. ASSESSMENT/PLAN: 1. Acute non-recurrent pansinusitis - ICD9: 461.8, ICD10: J01.40 - Supportive care with plenty of fluids, rest, and analgesia prn. - Follow up in one week if symptoms persist or worsen.- Will begin treatment with as per antibiotic as written, see orders - METHYLPREDNISOLONE 4 MG TABLETS IN A DOSE PACK - AMOXICILLIN 875 MG-POTASSIUM CLAVULANATE 125 MG TABLET Orquidea Victor APRN.[employer] To ER if develops chest pain, shortness of breath, or severe worsening of symptoms. Discussed risks, benefits, alternatives, and potential side effects of medications. Patient expressed understanding and agreed with the plan. Orquidea Victor APRN.[employer] [address] [place] [address] Referring Provider: SELF [[id number]] Allergies As of Date: 10/27/2021 Noted Allergy Reaction environmental [Other] 07/16/2005 Comments: multiple grasses (more content not included)... Normal [facility] Free T3on 09-05-2021 Free T3 [Mass/Vol] 3.3 pg/mL Normal 2.3-4.1 [facility] Comment on above: Performed By: #### F REET3, FT4, TSH #### [facility] [employer] [address], [place] [address] Free T4on 09-05-2021 Free T4 [Mass/Vol] 1.3 ng/dL Normal 0.9-1.7 [facility] Comment on above: Performed By: #### F REET3, FT4, TSH #### [facility] [employer] [address] [place], [place] [address] TSHon 09-05-2021 TSH Qn 4.630 m[IU]/L High 0.270-4.200 [facility] Comment on above: Result Comment: If t he patient is , TSH reference range varies by gestational period: First Trimester (weeks 9-12): 0.180-2.990 mcIU/mL Second Trimester: 0.110-3.980 mcIU/mL Third Trimester: 0.480-4.710 mcIU/mL Lencho Soriano et al. A Practical Approach for the Verifications and Determination of Site- and Trimester-Specific Reference Intervals for Thyroid Function tests in . Thyroid, 2019:29:3:412-420. Efrain E, et al. 2017 Guidelines of the [place] Thyroid Association for the Diagnosis and Management of Thyroid Disease during and the . Thyroid, 2017:27:3:315-389. Performed By: #### F REET3, FT4, TSH #### [facility] [address] [place], [place] [address] CNOVon 05-31-2021 CNOV Office Visit (INTMWS ) MICHELA SCHMIDT ([id number]) 1975 F Date Time Provider Department 05/31/21 8:00 AM JOESPH WOLF INTMWS During your visit today, we recorded the following information about you: Pulse Blood pressure Weight Height 82/minute 102/80 88.9 kg 1.66 m Joesph Wolf MD 07/17/2021 12:08 AM Signed This note was created using NoteWriter. Subjective Michela Schmidt is a 45 year old female. HISTORY Michela Schmidt is a 45 year old lady here for yearly exam and follow up appointment. PAST MEDICAL HISTORY Diagnosis Date - Hypothyroidism - Nonspecific abnormal results of thyroid function study - VV (varicose veins) Current Outpatient Medications Medication Sig - levothyroxine (LEVOXYL) 75 mcg tablet Take 1 tablet by mouth once daily. TAKE ON AN EMPTY STOMACH. ID#[id number] - Levocetirizine (XYZAL) 5 mg tablet Take 1 tablet by mouth once daily as needed. In the evening - mometasone (NASONEX) 50 mcg/actuation nasal spray Use 2 Sprays in the nose once daily. Rinse mouth after use. (Patient not taking: Reported on 05/31/2021 ) No current facility-administered medications for this visit. ALLERGIES Allergen Reactions - Environmental [Othe* multiple grasses, trees, cat and dog FAMILY HISTORY Problem Relation Age of Onset - Hypertension Mother - Lipids Mother - Diabetes Mother Type 2 - Hypertension Father - Lipids Father - Coronary Artery Disease Father - COPD Father - Diabetes Father Type 2 - Diabetes Sister Type 2 - other (Colon polyps) Brother - other (Colon polyps) Brother - Thyroid Sister hypothyroid--Harris s (confirmed) - other (colon polyp) Sister - Thyroid Sister hypothyroid--Harris s (?) - other (Thyroid cancer) Maternal Aunt - Colon Cancer Other 85 Social History Tobacco Use - Smoking status: Never Smoker - Smokeless tobacco: Never Used Substance Use Topics - Alcohol use: No - Drug use: No Review of Systems Objective BP 102/80 Pulse 82 Ht 166 cm (5' 5.35) Wt 88.9 kg (196 lb) LMP 07/22/2013 BMI 32.26 kg/m? Physical Exam Vitals reviewed. Constitutional: Appearance: She is well-developed. She is obese. HENT: Head: Normocephalic and atraumatic. Right Ear: External ear normal. Left Ear: External ear normal. Nose: Nose normal. Eyes: Conjunctiva/sclera: Conjunctivae normal. Neck: Thyroid: No thyromegaly. Vascular: No carotid bruit. Cardiovascular: Rate and Rhythm: Normal rate and regular rhythm. Pulses: Normal pulses. Heart sounds: Normal heart sounds. No murmur heard. No friction rub. No gallop. Pulmonary: Effort: Pulmonary effort is normal. Breath sounds: Normal breath sounds. Abdominal: General: Bowel sounds are normal. There is no distension. Palpations: Abdomen is soft. There is no mass. Tenderness: There is no abdominal tenderness. Musculoskeletal: General: No deformity. Normal range of motion. Lymphadenopathy: Cervical: No cervical adenopathy. Skin: General: Skin is warm and dry. Coloration: Skin is not jaundiced or pale. Findings: No rash. Neurological: General: No focal deficit present. Mental Status: She is alert and oriented to person, place, and time. Cranial Nerves: No cranial nerve deficit. Sensory: No sensory deficit. Motor: No abnormal muscle tone. Coordination: Coordination normal. Deep Tendon Reflexes: Reflexes normal. Psychiatric: Mood and Affect: Mood normal. Behavior: Behavior normal. Thought Content: Thought content normal. Judgment: Judgment normal. Component Latest Ref Rng AND Units 07/02/2019 05/25/2020 05/26/2021 WBC 3.70 - 11.00 k/uL 10.12 6.96 RBC 3.90 - 5.20 m/uL 4.75 4.49 Hemoglobin 11.5 - 15.5 g/dL 14.1 13.1 Hematocrit 36.0 - 46.0 % 45.5 41.9 MCV 80.0 - 100.0 fL 95.8 93.3 MCH 26.0 - 34.0 pG 29.7 29.2 MCHC 30.5 - 36.0 g/dL 31.0 31.3 RDW-CV 11.5 - 15.0 % 13.2 12.6 Platelet Count 150 - 400 k/uL 461 (H) 440 (H) MPV 9.0 - 12.7 fL 9.8 9.4 Neut% % 65.1 Abs Neut (ANC) 1.45 - 7.50 k/uL 4.53 Lymph% % 25.4 Abs Lymph 1.00 - 4.00 k/uL 1.77 [place]% % 7.3 Abs [place] <0.87 k/uL 0.51 Eosin% % 1.6 Abs Eosin <0.46 k/uL 0.11 Baso% % 0.6 Abs Baso <0.11 k/uL 0.04 Nucleated Reds 0 /100 WBC 0.0 Absolute nRBC <0.01 k/uL <0.01 <0.01 Diff Type Auto Diff Protein, Total 6.3 - 8.0 g/dL 7.8 6.9 Albumin 3.9 - 4.9 g/dL 4.6 4.4 Calcium 8.5 - 10.2 mg/dL 9.5 9.2 Bilirubin, Total 0.2 - 1.3 mg/dL 0.3 0.3 Alkaline Phosphatase 34 - 123 U/L 71 73 AST 13 - 35 U/L 21 18 Glucose 74 - 99 mg/dL 69 (L) 89 BUN 7 - 21 mg/dL 16 12 Creatinine 0.58 - 0.96 mg/dL 0.87 0.81 Sodium 136 - 144 mmol/L 138 139 Potassium 3.7 - 5.1 mmol/L 4.1 4.2 Chloride 97 - 105 mmol/L 102 102 CO2 22 - 30 mmol/L 24 26 Anion Gap 9 - 18 mmol/L 12 11 ALT 7 - 38 U/L 10 14 eGFR- >60 >60 eGFR-All Other Races . >60 >60 Cholesterol, Total <200 mg/d (more content not included)... Normal [facility] CBC and Differentialon 05-26 Abs Baso 0.04 k/uL Normal <0.11 [facility] Comment on above: Performed By: #### T 3, LIPB, CBCDIF, FT4 #### [facility] [employer] [facility] [place] [phone] Abs [place] 0.51 k/uL Normal <0.87 [facility] Comment on above: Performed By: #### T 3, LIPB, CBCDIF, FT4 #### [facility] [employer] [facility] [place] [phone] Abs Neut 4.53 k/uL Normal 1.45-7.50 [facility] Comment on above: Performed By: #### T 3, LIPB, CBCDIF, FT4 #### [facility] [employer] [facility] [place] [address] Absolute nRBC <0.01 Normal <0.01 [facility] Comment on above: Performed By: #### T 3, LIPB, CBCDIF, FT4 #### [facility] [employer] [facility] [place] [phone] Basophils/100 WBC (Bld) 0.6 % Normal [facility] Comment on above: Performed By: #### T 3, LIPB, CBCDIF, FT4 #### [facility] [address] [place] [address] DTYPE Auto Diff Normal [facility] Comment on above: Performed By: #### T 3, LIPB, CBCDIF, FT4 #### [facility] [address] [place] [address] Eosinophils (Bld) [#/Vol] 0.11 10*3/uL Normal <0.46 [facility] Comment on above: Performed By: #### T 3, LIPB, CBCDIF, FT4 #### [place] [address] [place] [address] Eosinophils/100 WBC (Bld) 1.6 % Normal [facility] Comment on above: Performed By: #### T 3, LIPB, CBCDIF, FT4 #### [place] [phone] Erythrocyte distribution width (RBC) [Ratio] 12.6 % Normal 11.5-15.0 [facility] Comment on above: Performed By: #### T 3, LIPB, CBCDIF, FT4 #### [place] [address] [place] [address] Hematocrit (Bld) [Volume fraction] 41.9 % Normal 36.0-46.0 [facility] Comment on above: Performed By: #### T 3, LIPB, CBCDIF, FT4 #### [place] [address] [place] [address] Hemoglobin (Bld) [Mass/Vol] 13.1 g/dL Normal 11.5-15.5 [facility] Comment on above: Performed By: #### T 3, LIPB, CBCDIF, FT4 #### [place] [address] [place] [address] Lymphocytes (Bld) [#/Vol] 1.77 10*3/uL Normal 1.00-4.00 [facility] Comment on above: Performed By: #### T 3, LIPB, CBCDIF, FT4 #### [facility] [address] [place], [place] [address] Lymphocytes/100 WBC (Bld) 25.4 % Normal [facility] Comment on above: Performed By: #### T 3, LIPB, CBCDIF, FT4 #### [facility] [address] [place], [place] [address] MCH 29.2 pG Normal 26.0-34.0 [facility] Comment on above: Performed By: #### T 3, LIPB, CBCDIF, FT4 #### [place] [address] [place] [address] MCHC (RBC) [Mass/Vol] 31.3 g/dL Normal 30.5-36.0 [facility] Comment on above: Performed By: #### T 3, LIPB, CBCDIF, FT4 #### [place] [address] [place], [place] [address] MCV (RBC) [Entitic vol] 93.3 fL Normal 80.0-100.0 [facility] Comment on above: Performed By: #### T 3, LIPB, CBCDIF, FT4 #### [place] [address] [place], [place] [address] Monocytes/100 WBC (Bld) 7.3 % Normal [facility] Comment on above: Performed By: #### T 3, LIPB, CBCDIF, FT4 #### [facility] [address] [place], [place] [address] Neutrophils/100 WBC (Bld) 65.1 % Normal [facility] Comment on above: Performed By: #### T 3, LIPB, CBCDIF, FT4 #### [place] [address] [place], [place] [address] NRBCs 0.0 /100 WBC Normal 0 [facility] Comment on above: Performed By: #### T 3, LIPB, CBCDIF, FT4 #### [place] [address] [place] [address] Platelet mean volume (Bld) [Entitic vol] 9.4 fL Normal 9.0-12.7 [facility] Comment on above: Performed By: #### T 3, LIPB, CBCDIF, FT4 #### [place] [address] Platelets (Bld) [#/Vol] 440 10*3/uL High 150-400 [facility] Comment on above: Performed By: #### T 3, LIPB, CBCDIF, FT4 #### [place] [address] RBC (Bld) [#/Vol] 4.49 10*6/uL Normal 3.90-5.20 [facility] Comment on above: Performed By: #### T 3, LIPB, CBCDIF, FT4 #### [place] [address] WBC (Bld) [#/Vol] 6.96 10*3/uL Normal 3.70-11.00 [facility] Comment on above: Performed By: #### T 3, LIPB, CBCDIF, FT4 #### [place] [address] Free T4on 05-26-2021 Free T4 [Mass/Vol] 1.2 ng/dL Normal 0.9-1.7 [facility] Comment on above: Performed By: #### T 3, LIPB, CBCDIF, FT4 #### [place] [phone] Lipid Panel, [place] 021 Cholesterol [Mass/Vol] 156 mg/dL Normal <200 [facility] Comment on above: Result Comment: <200 mg/dL, Desirable 200-239 mg/dL, Borderline high >239 mg/dL, High Performed By: #### T 3, LIPB, CBCDIF, FT4 #### [facility] [employer] [address] [place], [place] [address] Cholesterol in HDL [Mass/Vol] 44 mg/dL Normal >39 [facility] Comment on above: Result Comment: 40-5 9 mg/dL, Acceptable >59 mg/dL, High: Negative risk factor for coronary heart disease <40 mg/dL, Low: Positive risk factor for coronary heart disease Performed By: #### T 3, LIPB, CBCDIF, FT4 #### [facility] [employer] [address] [place], [place] [address] Cholesterol in LDL [Mass/Vol] 96 mg/dL Normal <100 [facility] Comment on above: Result Comment: <100 mg/dL, Optimal 100-129 mg/dL, Near optimal/above optimal 130-159 mg/dL, Borderline high 160-189 mg/dL, High >189 mg/dL, Very high Secondary prevention optimal LDL Cholesterol levels are recommended to be < 70 mg/dL Performed By: #### T 3, LIPB, CBCDIF, FT4 #### [facility] [employer] [address] [place], [place] [address] Fasting Time 12 hrs Normal [facility] Comment on above: Performed By: #### T 3, LIPB, CBCDIF, FT4 #### [facility] [employer] [address] [place], [place] [address] LDL:HDL Ratio 2.18 Normal <2.54 [facility] Comment on above: Result Comment: Refe rence: 1. National Cholesterol Education Program ATP III Guideline At-A-Glance Quick Desk Reference: National Heart, Lung, and Blood False Pass. National Institutes of Health. 2001: NIH Publication No. 01-3305. 2. An International Atherosclerosis Society position paper: global recommendations for the management of dyslipidemia: executive summary, Atherosclerosis. 2014: 232(2):410-413. Performed By: #### T 3, LIPB, CBCDIF, FT4 #### [place] [address] [place] [phone] Non HDL Cholesterol 112 mg/dL Normal <130 [facility] Comment on above: Result Comment: <130 mg/dL, Optimal 130-159 mg/dL, Near optimal/above optimal 160-189 mg/dL, Borderline high 190-219 mg/dL, High >219 mg/dL, Very high Secondary prevention optimal non HDL Cholesterol levels are recommended to be < 100 mg/dL Performed By: #### T 3, LIPB, CBCDIF, FT4 #### [place] [address] [place], [place] [address] TC:HDL Ratio 3.55 Normal <5.10 [facility] Comment on above: Performed By: #### T 3, LIPB, CBCDIF, FT4 #### [place] [address] [place], [place] [address] Triglyceride [Mass/Vol] 78 mg/dL Normal <150 [facility] Comment on above: Result Comment: <150 mg/dL, Normal 150-199 mg/dL, Borderline high 200-499 mg/dL, High >499 mg/dL, Very high Performed By: #### T 3, LIPB, CBCDIF, FT4 #### [place] [address] [place] [phone] VLDL Cholesterol 16 mg/dL Normal <30 [facility] Comment on above: Performed By: #### T 3, LIPB, CBCDIF, FT4 #### [place] [address] [place] [address] Remote CMP (for [facility] use only )on 05-26-2021 Albumin [Mass/Vol] 4.4 g/dL Normal 3.9-4.9 [facility] Comment on above: Performed By: #### R CMP, RTSH #### [place] [address] [place], [place] [address] ALP [Catalytic activity/Vol] 73 U/L Normal 34-123 [facility] Comment on above: Performed By: #### R CMP, RTSH #### [facility] [address] [place] [address] ALT [Catalytic activity/Vol] 14 U/L Normal 7-38 [facility] Comment on above: Performed By: #### R CMP, RTSH #### [facility] [address] [place] [address] Anion gap [Moles/Vol] 11 mmol/L Normal 9-18 [facility] Comment on above: Performed By: #### R CMP, RTSH #### [facility] [address] [place] [address] AST [Catalytic activity/Vol] 18 U/L Normal 13-35 [facility] Comment on above: Performed By: #### R CMP, RTSH #### [facility] [address] [place] [address] Bilirubin [Mass/Vol] 0.3 mg/dL Normal 0.2-1.3 [facility] Comment on above: Performed By: #### R CMP, RTSH #### [facility] [address] [place] [address] Calcium [Mass/Vol] 9.2 mg/dL Normal 8.5-10.2 [facility] Comment on above: Performed By: #### R CMP, RTSH #### [facility] [address] [place] [id number] Chloride [Moles/Vol] 102 mmol/L Normal 97-105 [facility] Comment on above: Performed By: #### R CMP, RTSH #### [facility] [address] [place] [address] CO2 [Moles/Vol] 26 mmol/L Normal 22-30 [facility] Comment on above: Performed By: #### R CMP, RTSH #### [facility] [address] [place] [phone] Creatinine [Mass/Vol] 0.81 mg/dL Normal 0.58-0.96 [facility] Comment on above: Performed By: #### R ARLENE, RTS #### [facility] [facility] [address] [place], [place] [address] eGFR- Amer. >60 Normal [facility] Comment on above: Performed By: #### R ARLENE, RTS #### [facility] [address] [id number] eGFR-All Other Races >[address] [facility] Comment on above: Result Comment: eGFR (Estimated GFR) Units of measure: mL/min/1.73 meters squared eGFR is derived from the reexpressed MDRD Study equation using the following parameters: serum creatinine, age, gender and race. The creatinine assay has been calibrated to be traceable to IDMS. An eGFR <60 mL/min/1.73m2 for >3 months is consistent with chronic kidney disease. Refer to KDOQI guidelines for clinical interpretation. In patients with unstable renal function, e.g. those with acute kidney injury, the eGFR may not accurately reflect actual GFR. Performed By: #### R ARLENE, RTS #### [facility] [address] [id number] Glucose [Mass/Vol] 89 mg/dL Normal 74-99 [facility] Comment on above: Result Comment: The [place] Diabetes Association (ADA) provides guidance for cutoff values for fasting glucose and random glucose. The ADA defines fasting as no caloric intake for at least 8 hours. Fasting plasma glucose results between 100 to 125 mg/dL indicate increased risk for diabetes (prediabetes). Fasting plasma glucose results greater than or equal to 126 mg/dL meet the criteria for diagnosis of diabetes. In the absence of unequivocal hyperglycemia, results should be confirmed by repeat testing. In a patient with classic symptoms of hyperglycemia or hyperglycemic crisis, random plasma glucose results greater than or equal to 200 mg/dL meet the criteria for diagnosis of diabetes. Reference: Standards of Medical Care in Diabetes 2016, [place] Diabetes Association. Diabetes Care. 2016.39(Suppl 1). Performed By: #### R ARLENE, RTSH #### [facility] [address] [place], [place] [address] Potassium [Moles/Vol] 4.2 mmol/L Normal 3.7-5.1 [facility] Comment on above: Performed By: #### R CMP, RTSH #### [facility] [address] [place], [place] [address] Protein [Mass/Vol] 6.9 g/dL Normal 6.3-8.0 [facility] Comment on above: Performed By: #### R CMP, RTSH #### [facility] [address] [place], [place] [address] Sodium [Moles/Vol] 139 mmol/L Normal 136-144 [facility] Comment on above: Performed By: #### R CMP, RTSH #### [facility] [address] [place], [place] [address] Urea nitrogen [Mass/Vol] 12 mg/dL Normal 7-21 [facility] Comment on above: Performed By: #### R CMP, RTSH #### [facility] [address] [place], [place] [address] Remote TSH (for [facility] use only )on 05-26-2021 TSH Qn 5.540 m[IU]/L High 0.270-4.200 [facility] Comment on above: Result Comment: If t he patient is , TSH reference range varies by gestational period: First Trimester (weeks 9-12): 0.180-2.990 mcIU/mL Second Trimester: 0.110-3.980 mcIU/mL Third Trimester: 0.480-4.710 mcIU/mL Lencho Soriano et al. A Practical Approach for the Verifications and Determination of Site- and Trimester-Specific Reference Intervals for Thyroid Function tests in . Thyroid, 2019:29:3:412-420. Efrain Wray, et al. 2017 Guidelines of the [place] Thyroid Association for the Diagnosis and Management of Thyroid Disease during and the . Thyroid, 2017:27:3:315-389. Performed By: #### R CMP, RTSH ####[facility] [id number] [place], [place] [id number] T3on 05-26-2021 T3 135 ng/dL Normal 79-165 [facility] Comment on above: Performed By: #### T 3, LIPB, CBCDIF, FT4 #### [facility] [address] [place], [place] [address] Vital Signs Date Time Vital Sign Value Performing Clinician Faci lity 06-07-2025 10:07-0400 Body height 162.[address] Joesph Wolf MD Work Phone: [facility] 06-07-2025 10:07-0400 Body mass index (BMI) [Ratio] 36.6 kg/m2 Dr. Joesph Wolf MD Work Phone: [facility] 06-07-2025 10:07-0400 Body weight 96.[address] Joesph Wolf MD Work Phone: [facility] 06-07-2025 10:07-0400 Diastolic blood pressure 85 mm[Hg] Dr. Joesph Wolf MD Work Phone: [facility] 06-07-2025 10:07-0400 Systolic blood pressure 123 mm[Hg] Dr. Joesph Wolf MD Work Phone: [facility] 06-24-2024 08:14-0400 Body height 165 cm Joesph Wolf MD Work Phone: [facility] 06-24-2024 08:14-0400 Body mass index (BMI) [Ratio] 35.56 kg/m2 Joesph Wolf MD Work Phone: [facility] 06-24-2024 08:14-0400 Body temperature 97 [degF] Joesph Wolf MD Work Phone: [facility] 06-24-2024 08:14-0400 Body weight 96.8 kg Joesph Wolf MD Work Phone: [facility] 06-24-2024 08:14-0400 Diastolic blood pressure 78 mm[Hg] Joesph Wolf MD Work Phone: [facility] 06-24-2024 08:14-0400 Heart rate 72 /min Joesph Wolf MD Work Phone: [facility] 06-24-2024 08:14-0400 Respiratory rate 16 /min Joesph Wolf MD Work Phone: [facility] 06-24-2024 08:14-0400 SaO2% (BldA) [Mass fraction] 100 % Joesph Wolf MD Work Phone: [facility] 06-24-2024 08:14-0400 Systolic blood pressure 118 mm[Hg] Joesph Wolf MD Work Phone: [facility] 06-12-2023 10:01-0400 Body height 163.2 cm Joy Allie MANAGER [employer] Work Phone: [facility] 06-12-2023 10:01-0400 Body weight 94.35 kg Joy Allie MANAGER [employer] Work Phone: [facility] 06-12-2023 10:01-0400 Diastolic blood pressure 70 mm[Hg] Joy Allie MANAGER [employer] Work Phone: [facility] 06-12-2023 10:01-0400 Heart rate 83 /min Joy Allie MANAGER [employer] Work Phone: [facility] 06-12-2023 10:01-0400 SaO2% (BldA) [Mass fraction] 98 % Joy Allie MANAGER [employer] Work Phone: [facility] 06-12-2023 10:01-0400 Systolic blood pressure 102 mm[Hg] Joy Allie MANAGER [employer] Work Phone: [facility] 06-07-2023 08:58-0400 Body height 162.[address] Joesph Wolf Work Phone: [facility] 06-07-2023 08:58-0400 Body mass index (BMI) [Ratio] 36.4 kg/m2 Dr. Joesph Wolf Work Phone: [facility] 06-07-2023 08:58-0400 Body weight 96.[address] Joesph Wolf Work Phone: [facility] 06-07-2023 08:58-0400 Diastolic blood pressure 72 mm[Hg] Dr. Joesph Wolf Work Phone: [facility] 06-07-2023 08:58-0400 Systolic blood pressure 106 mm[Hg] Dr. Joesph Wolf Work Phone: [facility] 08-07-2022 12:53-0500 Diastolic blood pressure 75 mm[Hg] Leland Lanier MD Work Phone: [facility] 08-07-2022 12:53-0500 Heart rate 75 /min Leland Lanier MD Work Phone: [facility] 08-07-2022 12:53-0500 Respiratory rate 16 /min Leland Lanier MD Work Phone: [facility] 08-07-2022 12:53-0500 SaO2% (BldA) [Mass fraction] 98 % Leland Lanier MD Work Phone: [facility] 08-07-2022 12:53-0500 Systolic blood pressure 113 mm[Hg] Leland Lanier MD Work Phone: [facility] 08-07-2022 11:26-0500 Body temperature 97.9 [degF] Leland Lanier MD Work Phone: [facility] 08-07-2022 11:26-0500 Body weight 93 kg Leland Lanier MD Work Phone: [facility] 06-06-2022 08:05-0400 Body height 163.8 cm Joesph Wolf MD Work Phone: [facility] 06-06-2022 08:05-0400 Body weight 92.99 kg Joesph Wolf MD Work Phone: [facility] 06-06-2022 08:05-0400 Diastolic blood pressure 78 mm[Hg] Joesph Wolf MD Work Phone: [facility] 06-06-2022 08:05-0400 Heart rate 71 /min Joesph Wolf MD Work Phone: [facility] 06-06-2022 08:05-0400 SaO2% (BldA) [Mass fraction] 98 % Joesph Wolf MD Work Phone: [facility] 06-06-2022 08:05-0400 Systolic blood pressure 106 mm[Hg] Joesph Wolf MD Work Phone: [facility] Encounters Encounter Date Encounter Type Care Provider Facility Start: 06-25-2025 ambulatory Joesph Wolf Facilit y:[facility] Start: 06-07-[address] Haylie Clark MD -Laboratory Specimen Work Phone: Start: 06-07-2025 Encounter for gynecological examination (general) (routine) without abnormal findings Haylie Clark [facility] Start: 06-07-2025 End: 06-07-[address] Haylie Clark MD -[facility] Work Phone: Start: 06-07-2025 End: 06-07-[address] Haylie Clark MD [facility] Start: 06-07-2025 End: 06-07-[address] Joesph Wolf MD Work Phone: -[facility] Start: 06-07-2025 End: 06-07-2025 ambulatory Joesph Wolf Facility:[facility] Start: 12-24-2024 End: 12-24-2024 [facility] Start: 12-24-2024 End: 12-24-2024 Office outpatient visit 15 minutes Sarah Wills PA-C Work Phone: [facility] [place] Comment on above: Actinic skin damage (Primary Dx); Encounter for skin care; Solar lentigo; Seborrheic keratosis; Multiple benign melanocytic nevi of both upper extremities, both lower extremities, and trunk; Philip angioma; Scar; Milia; Skin tags, multiple acquired Start: 06-24-2024 End: 06-24-2024 Patient encounter status Joesph Wolf MD Work Phone: [facility] Work Phone: Start: 06-24-2024 End: 06-24-2024 Periodic preventive med est patient 40-64yrs Joesph Wolf MD Work Phone: [facility] [place] Comment on above: Routine medical exam (Primary Dx); Acquired hypothyroidism; IFG (impaired fasting glucose); Encounter for long-term current use of medication; Vitamin D deficiency; Varicose veins of both lower extremities with pain; Screening for depression; Encounter for screening examination for other mental health and behavioral disorders; Class 2 obesity due to excess calories without serious comorbidity with body mass index (BMI) of 35.0 to 35.9 in adult Start: 06-22-2024 End: 06-22-2024 Telephone encounter Joesph Wolf MD Work Phone: [facility] [place] Comment on above: Orders Start: 02-06-2024 Telephone encounter Joesph yan MD Work Phone: [facility] [place] Start: 12-20-2023 Refill Rosalia SAMPSON Work Phone: [facility] [place] Comment on above: Refill Request Start: 11-01-2023 Telephone encounter Joesph yan MD Work Phone: [facility] [place] Comment on above: Patient Question Start: 06-13-2023 End: 06-13-[address] Joesph Wolf Work Phone: [facility] Work Phone: Start: 06-13-2023 End: 06-13-[address] Joesph Wolf Work Phone: [facility] [facility] Work Phone: Start: 06-12-2023 End: 06-12-2023 Patient encounter procedure Joy Kelley MANAGER [employer] Work Phone: Internal [facility] Comment on above: Wellness examination (Primary Dx); Acquired hypothyroidism; Obesity, Class II, BMI 35-39.9 Start: 06-12-2023 End: 06-12-2023 Patient encounter status Joy Allie MANAGER [employer] Work Phone: [facility] Work Phone: Start: 06-07-2023 End: 06-07-[address] Joesph Wolf Work Phone: [facility] Work Phone: Start: 06-07-2023 End: 06-07-[address] Joesph Wolf Work Phone: [facility] Start: 06-07-2023 End: 06-07-[address] Joesph Wolf Work Phone: [facility] Start: 06-07-2023 End: 06-07-[address] Joesph Wolf Work Phone: [facility] Work Phone: Start: 06-03-2023 Telephone encounter Joesph yan MD Work Phone: [facility] Comment on above: Add-on lab order req uest Start: 06-03-2023 End: 06-03-[address] Joesph Wolf Work Phone: [facility] Work Phone: Start: 06-03-2023 End: 06-03-[address] Joesph Wolf Work Phone: [facility] Work Phone: Start: 11-16-2022 Refill Joesph gutierrez MD Work Phone: [facility] [place] Start: 08-07-2022 End: 08-07-2022 Subsequent hospital visit by physician Leland Lanier MD Work Phone: [facility] Comment on above: Special screening fo r malignant neoplasms, colon [Z12.11] Start: 06-06-2022 End: 06-06-2022 Patient encounter procedure Joesph Wolf MD Work Phone: [facility] [place] Comment on above: Routine medical exam (Primary Dx); Acquired hypothyroidism; Class 1 obesity due to excess calories without serious comorbidity with body mass index (BMI) of 34.0 to 34.9 in adult; Screening for colon cancer; Special screening for malignant neoplasms, colon; Screening, lipid Start: 06-06-2022 End: 06-06-2022 Patient encounter status Joesph Wolf MD Work Phone: [facility] [place] Start: 06-01-2022 Patient encounter status Rosalia Ricci APRN.DIE SIZER Work Phone: [facility] [place] Start: 06-01-2022 End: 06-01-2022 Refill Rosalia Ricci APRN.DIE SIZER Work Phone: [facility] Comment on above: Refill Request Start: 06-01-2022 End: 06-01-2022 Patient encounter procedure [facility] Procedures Date Procedure Procedure Detail Performing Clinician Start: 06-07-2025 Liquid based cervica l cytology screening Dr. Joesph Wolf MD Work Phone: Comment on above: NEGATIVE FOR INTRAEP ITHELIAL LESION OR MALIGNANCY. This liquid based Th inPrep(R) pap test was interpretedusing the ihush.comgic(R) Genius(TM) Cervical Algorithm wholeslide imaging system. Start: 06-24-2024 Adult depression scr eening assessment Joesph Wolf MD Work Phone: Start: 06-13-[address] Bo Wolf Work Phone: Start: 06-04-2023 Lipid 1996 panel - S tevin or Plasma Joy Kelley MANAGER [employer] Work Phone: Start: 06-04-2023 Thyrotropin [Units/v olume] in Serum or Plasma Sarah Wills PA-C Work Phone: Start: 06-03-2023 End: 06-03-[address] Joesph Wolf Work Phone: Start: 08-07-2022 Colonoscopy flx dx w /collj spec when pfrmd Joesph Wolf MD Work Phone: Start: 08-07-2022 Colonoscopy Joesph polanco MD Work Phone: Start: 06-05-2022 Lipid 1996 panel - S tevin or Plasma Joesph Wolf MD Work Phone: Start: 06-01-2022 End: 06-01-2022 Mammography Rosalia Ricci APRNLoreneKAILA S Work Phone: Plan of Treatment Date Care Activity Detail Author Start: 2051 RSV Immunization for Adults (1 - 1-dose 75+ series) RSV Immunization for Adults (1 - 1-dose 75+ series) [facility] Start: 08-07-2032 Colonoscopy COLONOSCOPY [facility] Start: 08-07-2032 COLORECTAL CANCER SCREENING COLORECTAL CANCER SCREENING [facility] Start: 08-07-2032 Screening for malign ant neoplasm of colon [facility] Start: 06-04-2028 Lipid 1996 panel - S tevin or Plasma Lipid Screening [facility] Start: 06-04-2028 Lipid panel Lipid Screening [facility] Start: 06-24-2027 Diabetes mellitus screening Diabetes Screening [facility] Start: 06-05-2027 Lipid 1996 panel - S tevin or Plasma Lipid Screening [facility] Start: 06-05-2027 LIPID SCREEN LIPID SCREEN [facility] Start: 11-06-2026 Diabetes Screening Diabetes Screenin [facility] Start: 2026 Zoster Vaccines (1 of 2) Zoste r Vaccines (1 of 2) [facility] Start: 06-04-2026 Diabetes Screening Diabetes Screenin g [facility] Start: 05-26-2026 LIPID SCREEN LIPID SCREEN [facility] Start: 11-28-2025 HPV TESTING HPV TESTING [facility] Start: 11-28-2025 Screening for malign ant neoplasm of cervix HPV Testing [facility] Start: 11-26-2025 Pap Testing Pap Testing [facility] Comment on above: Postponed from 11/28 (Postponed To Appropriate Date) Start: 11-26-2025 Screening for malign ant neoplasm of cervix [facility] Comment on above: Postponed from 11/28 (Postponed To Appropriate Date) Start: 07-07-2025 End: 07-07-2025 Patient encounter procedure 07/07/2025 8:00 AM EST Office Visit [facility] [place] [address] [place], [place] [id number] Joesph Wolf MD [address] [place], [place] [id number] Yearly [facility] [place] Comment on above: Yearly Start: 06-25-2025 MG Breast - bilatera l Screening [facility] Start: 06-24-2025 Annual PCP Team Bath Tester daniele Disease Visit Annual PCP Team Chronic Disease Visit [facility] Start: 06-24-2025 Anxiety Screening Anxiety Screening [facility] Start: 06-24-2025 Depression Screening Depression Scre ening [facility] Start: 06-24-2025 Urine microalbumin profile DTaP,Tdap,Td Vaccine (2 - Td or Tdap) [facility] Comment on above: Postponed from 06/29 (Declined at this time) Start: 06-11-2025 Screening for malign ant neoplasm of breast Mammogram Screening [facility] Start: 06-05-2025 DIABETES SCREEN DIABETES SCREEN [facility] Start: 06-05-2025 Diabetes Screening Diabetes Screenin g [facility] Start: 04-26-2025 Influenza vaccination Influenz a Vaccine (Season Ended) [facility] Start: 02-22-2025 Influenza vaccination Influenza Vacc ine (#1) [facility] Comment on above: Postponed from 04/26 (Declined at this time) Start: 01-29-2025 End: 01-29-2025 Patient encounter procedure 01/29/2025 9:00 AM EDT Office Visit [facility] [place] [address] [place] [id number] Sarah Wills PA-C [address] [place] [address] [facility] [place] Start: 06-24-2024 End: 06-24-2024 Patient encounter procedure 06/24/2024 8:00 AM EDT Office Visit [facility] [place] [address], [place] [id number] Joesph Wolf MD [address] [place], [place] [id number] annual exam [facility] [place] Comment on above: annual exam Start: 06-22-2024 End: 09-21-2024 Hepatitis B virus surface Ab [Presence] in Serum HEPATITIS B SURFACE ANTIBODY Lab Routine Need for hepatitis B screening test Expected: 06/22/2024, Expires: 09/21/[address] [facility] Work Phone: Comment on above: Expected: 06/22/2024 , Expires: 09/21/2024 Start: 06-12-2024 Annual PCP Team Bath Tester daniele Disease Visit Annual PCP Team Chronic Disease Visit [facility] Start: 06-04-2024 Thyroid stimulating hormone measurement TSH Level [facility] Start: 06-03-2024 Mammography Mammogram Screening [facility] Start: 06-03-2024 Screening for malign ant neoplasm of breast [facility] Start: 05-26-2024 DIABETES SCREEN DIABETES SCREEN [facility] Start: 04-26-2024 Covid-19 Vaccine ( season) Covid-19 Vaccine ( season) [facility] Start: 04-26-2024 Influenza vaccination [facility] Start: 02-23-2024 Influenza vaccination Influenza Vacc ine (#1) [facility] Comment on above: Postponed from 04/26 (Declined at this time) Start: 11-29-2023 PAP TESTING PAP TESTING [facility] Start: 11-02-2023 End: 02-01-2024 25-hydroxyvitamin D3 [Mass/volume] in Serum or Plasma VITAMIN D 25 HYDROXY Lab Routine Fatigue, unspecified type Encounter for long-term current use of medication Encounter for vitamin deficiency screening Expected: 11/02/2023, Expires: 02/01/[address] [facility] Work Phone: Comment on above: Expected: 11/02/2023 , Expires: 02/01/2024 Start: 11-02-2023 End: 02-01-2024 CBC panel - Blood by Automated count CBC Lab Routine Fatigue, unspecified type Encounter for long-term current use of medication Expected: 11/02/2023, Expires: 02/01/[address] [facility] Work Phone: Comment on above: Expected: 11/02/2023 , Expires: 02/01/2024 Start: 11-02-2023 End: 02-01-2024 Cobalamin (Vitamin B12) [Mass/volume] in Serum or Plasma VITAMIN B12 BLOOD Lab Routine Fatigue, unspecified type Encounter for long-term current use of medication Expected: 11/02/2023, Expires: 02/01/[address] [facility] Work Phone: Comment on above: Expected: 11/02/2023 , Expires: 02/01/2024 Start: 11-02-2023 End: 02-01-2024 Comprehensive metabolic 2000 panel - Serum or Plasma COMP METABOLIC PANEL Lab Routine Fatigue, unspecified type IFG (impaired fasting glucose) Encounter for long-term current use of medication Expected: 11/02/2023, Expires: 02/01/[address] [facility] Work Phone: Comment on above: Expected: 11/02/2023 , Expires: 02/01/2024 Start: 11-02-2023 End: 02-01-2024 Folate [Mass/volume] in Serum or Plasma FOLATE SERUM Lab Routine Fatigue, unspecified type Encounter for long-term current use of medication Expected: 11/02/2023, Expires: 02/01/[address] [facility] Work Phone: Comment on above: Expected: 11/02/2023 , Expires: 02/01/2024 Start: 11-02-2023 End: 02-01-2024 Hemoglobin A1c in Blood HGB A1C Lab Routine Fatigue, unspecified type IFG (impaired fasting glucose) Encounter for long-term current use of medication Expected: 11/02/2023, Expires: 02/01/[address] [facility] Work Phone: Comment on above: Expected: 11/02/2023 , Expires: 02/01/2024 Start: 11-02-2023 End: 02-01-2024 Iron and Iron binding capacity panel - Serum or Plasma IRON + TIBC Lab Routine Fatigue, unspecified type Encounter for long-term current use of medication Expected: 11/02/2023, Expires: 02/01/[address] [facility] Work Phone: Comment on above: Expected: 11/02/2023 , Expires: 02/01/2024 Start: 11-02-2023 End: 02-01-2024 Magnesium [Mass/volume] in Serum or Plasma MAGNESIUM BLD Lab Routine Fatigue, unspecified type Encounter for long-term current use of medication Expected: 11/02/2023, Expires: 02/01/[address] [facility] Work Phone: Comment on above: Expected: 11/02/2023 , Expires: 02/01/2024 Start: 11-02-2023 End: 02-01-2024 Thyrotropin [Units/volume] in Serum or Plasma TSH BLD Lab Routine Fatigue, unspecified type Acquired hypothyroidism Encounter for long-term current use of medication Expected: 11/02/2023, Expires: 02/01/[address] [facility] Work Phone: Comment on above: Expected: 11/02/2023 , Expires: 02/01/2024 Start: 11-02-2023 End: 02-01-2024 Thyroxine (T4) free [Mass/volume] in Serum or Plasma T4 FREE/FREE THYROX Lab Routine Fatigue, unspecified type Acquired hypothyroidism Encounter for long-term current use of medication Expected: 11/02/2023, Expires: 02/01/[address] [facility] Work Phone: Comment on above: Expected: 11/02/2023 , Expires: 02/01/2024 Start: 11-02-2023 End: 02-01-2024 Triiodothyronine (T3) Free [Mass/volume] in Serum or Plasma T3 FREE BLD Lab Routine Fatigue, unspecified type Acquired hypothyroidism Encounter for long-term current use of medication Expected: 11/02/2023, Expires: 02/01/[address] [facility] Work Phone: Comment on above: Expected: 11/02/2023 , Expires: 02/01/2024 Start: 08-26-2023 Behavioral Health Screening Behavioral Health Screening [facility] Start: 08-26-2023 Depression Assessment Depression Ass essment [facility] Start: 06-29-2023 DTaP/Tdap/Td Vaccine s (2 - Td or Tdap) DTaP/Tdap/Td Vaccines (2 - Td or Tdap) [facility] Start: 06-29-2023 Urine microalbumin profile [facility] Start: 06-06-2023 ANNUAL PCP TEAM DOOR FRAMER DANIELE DISEASE VISIT ANNUAL PCP TEAM CHRONIC DISEASE VISIT [facility] Start: 06-06-2023 End: 08-06-2023 CBC panel - Blood by Automated count CBC Lab Routine Routine medical exam Expected: 06/06/2023 (Approximate), Expires: 08/06/[address] [facility] Work Phone: Comment on above: Expected: 06/06/2023 (Approximate), Expires: 08/06/2023 Start: 06-06-2023 End: 08-06-2023 Comprehensive metabolic 2000 panel - Serum or Plasma COMP METABOLIC PANEL Lab Routine Routine medical exam Expected: 06/06/2023 (Approximate), Expires: 08/06/[address] [facility] Work Phone: Comment on above: Expected: 06/06/2023 (Approximate), Expires: 08/06/2023 Start: 06-06-2023 COVID-19 VACCINE (#1) COVID-19 VACCI NE (#1) [facility] Comment on above: Postponed from 03/29 (Declined at this time) Start: 06-06-2023 HEPATITIS B (1 of 3 - 3-dose series) HEPATITIS B (1 of 3 - 3-dose series) [facility] Comment on above: Postponed from 09/29 (Declined at this time) Start: 06-06-2023 Hepatitis B Vaccine (1 of 3 - 3-dose series) Hepatitis B Vaccine (1 of 3 - 3-dose series) [facility] Comment on above: Postponed from 09/29 (Declined at this time) Start: 06-06-2023 End: 08-06-2023 Lipid 1996 panel - Serum or Plasma LIPID PANEL BASIC Lab Routine Routine medical exam Screening, lipid Expected: 06/06/2023 (Approximate), Expires: 08/06/[address] [facility] Work Phone: Comment on above: Expected: 06/06/2023 (Approximate), Expires: 08/06/2023 Start: 06-06-2023 End: 08-06-2023 Thyrotropin [Units/volume] in Serum or Plasma [facility] Work Phone: Comment on above: 3 Occurrences starti ng 06/06/2022 until 06/06/2023 Expected: 06/06/2023 (Approximate), Expires: 08/06/2023 Start: 06-06-2023 End: 08-06-2023 Thyroxine (T4) free [Mass/volume] in Serum or Plasma [facility] Work Phone: Comment on above: 3 Occurrences starti ng 06/06/2022 until 06/06/2023 Expected: 06/06/2023 (Approximate), Expires: 08/06/2023 Start: 06-06-2023 End: 08-06-2023 Triiodothyronine (T3) Free [Mass/volume] in Serum or Plasma [facility] Work Phone: Comment on above: 3 Occurrences starti ng 06/06/2022 until 06/06/2023 Expected: 06/06/2023 (Approximate), Expires: 08/06/2023 Start: 06-03-2023 End: 08-03-2023 Hemoglobin A1c in Blood HGB A1C Lab Routine IFG (impaired fasting glucose) Expected: 06/03/2023, Expires: 08/03/[address] [facility] Work Phone: Comment on above: Expected: 06/03/2023 , Expires: 08/03/2023 Start: 06-03-2023 Screening mammography SCRN JACQUELINE M (CAD)W/RICO BILAT [facility] Start: 06-01-2023 Mammography [facility] Start: 04-26-2023 Covid-19 Vaccine ( season) Covid-19 Vaccine ( season) [facility] Start: 04-26-2023 Influenza vaccination Influenza Vacc ine (#1) [facility] Start: 02-22-2023 Influenza vaccination INFLUENZA (#1) [facility] Comment on above: Postponed from 04/26 (Declined at this time) Start: 10-27-2022 ANNUAL PCP TEAM DOOR FRAMER DANIELE DISEASE VISIT ANNUAL PCP TEAM CHRONIC DISEASE VISIT [facility] Start: 08-26-2022 DEPRESSION ASSESSMENT DEPRESSION ASS ESSMENT [facility] Start: 06-08-2022 End: 08-08-2022 Triiodothyronine (T3) Free [Mass/volume] in Serum or Plasma T3 FREE BLD Lab Routine Acquired hypothyroidism Expected: 06/08/2022 (Approximate), Expires: 08/08/[address] [facility] Work Phone: Comment on above: Expected: 06/08/2022 (Approximate), Expires: 08/08/2022 Start: 06-01-2022 End: 08-01-2022 CBC W Auto Differential panel - Blood CBC + DIFF Lab Routine Acquired hypothyroidism Routine medical exam Expected: 06/01/2022, Expires: 08/01/[address] [facility] Work Phone: Comment on above: Expected: 06/01/2022 , Expires: 08/01/2022 Start: 06-01-2022 End: 08-01-2022 Comprehensive metabolic 2000 panel - Serum or Plasma COMP METABOLIC PANEL Lab Routine Acquired hypothyroidism Expected: 06/01/2022, Expires: 08/01/[address] [facility] Work Phone: Comment on above: Expected: 06/01/2022 , Expires: 08/01/2022 Start: 06-01-2022 End: 08-01-2022 Lipid 1996 panel - Serum or Plasma LIPID PANEL BASIC Lab Routine Encounter for lipid screening for cardiovascular disease Expected: 06/01/2022, Expires: 08/01/[address] [facility] Work Phone: Comment on above: Expected: 06/01/2022 , Expires: 08/01/2022 Start: 06-01-2022 End: 08-01-2022 Thyrotropin [Units/volume] in Serum or Plasma TSH BLD Lab Routine Acquired hypothyroidism Expected: 06/01/2022, Expires: 08/01/[address] [facility] Work Phone: Comment on above: Expected: 06/01/2022 , Expires: 08/01/2022 Start: 06-01-2022 End: 08-01-2022 Thyroxine (T4) free [Mass/volume] in Serum or Plasma T4 FREE/FREE THYROX Lab Routine Acquired hypothyroidism Expected: 06/01/2022, Expires: 08/01/[address] [facility] Work Phone: Comment on above: Expected: 06/01/2022 , Expires: 08/01/2022 Start: 04-26-2022 Influenza vaccination INFLUENZA (#1) [facility] Start: 2021 COLOGUARD (FIT-DNA) COLOGUARD (FIT-D NA) [facility] Start: 2021 Colonoscopy COLONOSCOPY [facility] Start: 2021 COLORECTAL CANCER SCREENING COLORECTAL CANCER SCREENING [facility] Start: [address] COLONOGRAPHY [facility] Start: 2021 FECAL OCCULT BLOOD FECAL OCCULT BLOO D [facility] Start: 2021 Screening for malign ant neoplasm of colon [facility] Start: 2021 SIGMOIDOSCOPY SIGMOIDOSCOPY [facility] Start: 08-26-2021 DEPRESSION ASSESSMENT DEPRESSION ASS ESSMENT [facility] Start: 08-02-2012 MMR Vaccines (1 of 1 - Standard series) MMR Vaccines (1 of 1 - Standard series) [facility] Start: 2006 Screening for malign ant neoplasm of cervix [facility] Start: 1997 Screening for malign ant neoplasm of cervix Pap Smear [facility] Start: 1995 Hepatitis B Vaccine (1 of 3 - 19+ 3-dose series) Hepatitis B Vaccine (1 of 3 - 19+ 3-dose series) [facility] Start: 1994 Anxiety Screening Anxiety Screening [facility] Start: 1994 Depression Screening Depression Scre [facility] Start: 1994 Hepatitis C screening Hepatitis C Sc reekaylee [facility] Start: 1988 Depression Screening Depression Scre [facility] Start: 03-29-1977 COVID-19 VACCINE (#1) COVID-19 VACCI NE (#1) [facility] Start: 1976 HEPATITIS B (1 of 3 - 3-dose series) HEPATITIS B (1 of 3 - 3-dose series) [facility] Start: 1976 Hepatitis B Vaccine (1 of 3 - 3-dose series) Hepatitis B Vaccine (1 of 3 - 3-dose series) [facility] Start: 1976 HIV screening HIV Screening [facility] Start: 1976 Lipid panel Lipid Panel [facility] Start: 1976 Screening for malign ant neoplasm of colon [facility] End: 06-24-2025 25-hydroxyvitamin D3 [Mass/volume] in Serum or Plasma VITAMIN D 25 HYDROXY Lab Routine Encounter for long-term current use of medication Vitamin D deficiency Every 6 months for 60 Occurrences starting 06/24/2024 until 06/24/2025 [facility] Comment on above: Every 6 months for 6 0 Occurrences starting 06/24/2024 until 06/24/2025 25-hydroxyvitamin D3 [Mass/volume] in Serum or Plasma VITAMIN D 25 HYDROXY Lab Routine Encounter for long-term current use of medication Vitamin D deficiency 06/24/2024 9:16 AM T [facility] End: 06-24-2025 CBC panel - Blood by Automated count COMPLETE BLOOD COUNT Lab Routine Encounter for long-term current use of medication Every 6 months for 60 Occurrences starting 06/24/2024 until 06/24/2025 [facility] Comment on above: Every 6 months for 6 0 Occurrences starting 06/24/2024 until 06/24/2025 CBC panel - Blood by Automated count COMPLETE BLOOD COUNT Lab Routine Encounter for long-term current use of medication 06/24/2024 9:16 AM T [facility] End: 06-24-2025 Comprehensive metabolic 2000 panel - Serum or Plasma COMPREHENSIVE METABOLIC PANEL Lab Routine IFG (impaired fasting glucose) Encounter for long-term current use of medication Every 6 months for 60 Occurrences starting 06/24/2024 until 06/24/[address] [facility] Work Phone: Comment on above: Every 6 months for 6 0 Occurrences starting 06/24/2024 until 06/24/2025 Comprehensive metabo lic 2000 panel - Serum or Plasma COMPREHENSIVE METABOLIC PANEL Lab Routine IFG (impaired fasting glucose) Encounter for long-term current use of medication 06/24/2024 9:16 AM [facility] End: 06-24-2025 Hemoglobin A1c in Blood HEMOGLOBIN A1C Lab Routine IFG (impaired fasting glucose) Encounter for long-term current use of medication Every 6 months for 60 Occurrences starting 06/24/2024 until 06/24/2025 [facility] Comment on above: Every 6 months for 6 0 Occurrences starting 06/24/2024 until 06/24/2025 Hemoglobin A1c in Blood HEMOGLOB IN A1C Lab Routine IFG (impaired fasting glucose) Encounter for long-term current use of medication 06/24/2024 9:16 AM [facility] End: 06-24-2025 Lipid 1996 panel - Serum or Plasma LIPID PANEL BASIC Lab Routine Encounter for long-term current use of medication Every 6 months for 60 Occurrences starting 06/24/2024 until 06/24/2025 [facility] Comment on above: Every 6 months for 6 0 Occurrences starting 06/24/2024 until 06/24/2025 Lipid 1996 panel - S tevin or Plasma LIPID PANEL BASIC Lab Routine Encounter for long-term current use of medication 06/24/2024 9:16 AM [facility] End: 06-24-2025 Magnesium [Mass/volume] in Serum or Plasma MAGNESIUM Lab Routine Encounter for long-term current use of medication Every 6 months for 60 Occurrences starting 06/24/2024 until 06/24/2025 [facility] Comment on above: Every 6 months for 6 0 Occurrences starting 06/24/2024 until 06/24/2025 Magnesium [Mass/volu me] in Serum or Plasma MAGNESIUM Lab Routine Encounter for long-term current use of medication 06/24/2024 9:16 AM [facility] End: 06-06-2023 Screening colonoscopy COLONOSCOPY SCREENING Endoscopy Routine Special screening for malignant neoplasms, colon 1 Occurrences starting 06/06/2022 until 06/06/[address] [facility] Work Phone: Comment on above: 1 Occurrences starti ng 06/06/2022 until 06/06/2023 End: 06-24-2025 THYROID PEROXIDASE ANTIBODY THYROID PEROXIDASE ANTIBODY Lab Routine Acquired hypothyroidism Encounter for long-term current use of medication Every 6 months for 60 Occurrences starting 06/24/2024 until 06/24/2025 [facility] Comment on above: Every 6 months for 6 0 Occurrences starting 06/24/2024 until 06/24/2025 THYROID PEROXIDASE ANTIBODY THYROID PEROXIDASE ANTIBODY Lab Routine Acquired hypothyroidism Encounter for long-term current use of medication 06/24/2024 9:16 AM [facility] End: 06-24-2025 Thyrotropin [Units/volume] in Serum or Plasma THYROID STIMULATING HORMONE Lab Routine Acquired hypothyroidism Encounter for long-term current use of medication Every 6 months for 60 Occurrences starting 06/24/2024 until 06/24/2025 [facility] Comment on above: Every 6 months for 6 0 Occurrences starting 06/24/2024 until 06/24/2025 Thyrotropin [Units/volume] in Serum or Plasma THYROID STIMULATING HORMONE Lab Routine Acquired hypothyroidism Encounter for long-term current use of medication 06/24/2024 9:16 AM [facility] End: 06-24-2025 Thyroxine (T4) free [Mass/volume] in Serum or Plasma T4 FREE/FREE THYROXINE Lab Routine Acquired hypothyroidism Encounter for long-term current use of medication Every 6 months for 60 Occurrences starting 06/24/2024 until 06/24/2025 [facility] Comment on above: Every 6 months for 6 0 Occurrences starting 06/24/2024 until 06/24/2025 Thyroxine (T4) free [Mass/volume] in Serum or Plasma T4 FREE/FREE THYROXINE Lab Routine Acquired hypothyroidism Encounter for long-term current use of medication 06/24/2024 9:16 AM [facility] End: 06-24-2025 Triiodothyronine (T3) Free [Mass/volume] in Serum or Plasma T3, FREE Lab Routine Acquired hypothyroidism Encounter for long-term current use of medication Every 6 months for 60 Occurrences starting 06/24/2024 until 06/24/2025 [facility] Comment on above: Every 6 months for 6 0 Occurrences starting 06/24/2024 until 06/24/2025 Triiodothyronine (T3 ) Free [Mass/volume] in Serum or Plasma T3, FREE Lab Routine Acquired hypothyroidism Encounter for long-term current use of medication 06/24/2024 9:16 AM EDT [facility] US Pelvis [facility] Immunizations Immunization Date Immunization Notes Care Provider Yvette luis 06-13-2018 influenza, injectabl e, quadrivalent, preservative free Rosalia Ricci MANAGER FLOOR[employer]IE [employer] Work Phone: [facility] 06-13-2018 influenza, seasonal, injectable Rosalia Ricci MANAGER FLOOR[employer]ER Work Phone: [facility] Work Phone: 06-13-2018 influenza virus vaccine, unspecified formulation Joesph Wolf MD Work Phone: [facility] 09-24-2017 Influenza, injectabl e, Madin Kami Canine Kidney, preservative free, quadrivalent Rosalia Ricci MANAGER FLOOR[employer]IE [employer]ER Work Phone: [facility] 09-24-2017 influenza, seasonal, injectable Rosalia Ricci MANAGER FLOOR.[employer]IE [employer]ER Work Phone: [facility] Work Phone: 06-14-2016 influenza, injectabl e, quadrivalent, contains preservative Rosalia Ricci MANAGER FLOOR.[employer]IE [employer]ER Work Phone: [facility] Work Phone: 06-29-2013 tetanus toxoid, redu crystal diphtheria toxoid, and acellular pertussis vaccine, adsorbed Rosalia Ricci MANAGER FLOOR.DIE SI[employer]ER Work Phone: [facility] 07-05-2012 influenza virus vaccine, live, attenuated, for intranasal use Rosalia Ricci MANAGER FLOOR.[employer]IE [employer]ER Work Phone: [facility] Work Phone: 07-09-2011 influenza virus vaccine, live, attenuated, for intranasal use Rosalia Ricci MANAGER FLOOR[employer]IE [employer]ER Work Phone: [facility] 06-30-2010 influenza virus vaccine, live, attenuated, for intranasal use Rosalia Ricci MANAGER FLOOR.[employer]IE [employer]ER Work Phone: [facility] Work Phone: 07-05-2009 novel [id number], all formulations Rosalia Ricci APRN.DIE SIZER Work Phone: [facility] 02-23-1994 hepatitis B vaccine, adult dosage Joesph Wolf MD Work Phone: [facility] 10-24-1993 hepatitis B vaccine, adult dosage Joesph Wolf MD Work Phone: [facility] 08-26-1993 hepatitis B vaccine, adult dosage Joesph Wolf MD Work Phone: [facility] Payers Date Payer Category Payer Self-pay [id number] 2024 Commercial Managed C are - HMO MMO [employer] [id number] 2019 Private Health Insurance [id number] 2014 Unknown [id number] Private Health Insurance [employer] [id number] Unknown [id number] Unknown [id number] Unknown [id number] Social History Date Type Detail Facility Start: 01-02-2018 End: 06-07-2023 Tobacco smoking status NHIS Never smoked tobacco [facility] Start: 01-02-2018 End: 08-07-2022 Tobacco use and exposure Smokeless tobacco non-user [facility] Start: 10-27-2021 End: 06-24-2024 Alcohol intake Current non-drinker of alcohol (finding) [facility] Start: 05-29-2021 History SDOH Alcohol Frequency 2 [facility] Start: 05-29-2021 History SDOH Alcohol Std Drinks 1 [facility] Start: 05-29-2021 History SDOH Social Connections Phone 5 [facility] Start: 05-29-2021 History SDOH Social Connections Get Together 98 [facility] Start: 05-29-2021 History SDOH Social Connections Meetings 3 [facility] Start: 05-29-2021 History SDOH Physica l Activity DPW 0 [facility] Start: 1975 Sex Assigned At Not on file [facility] Start: 11-28-2020 End: 06-07-2023 Tobacco smoking status NHIS Unknown if ever smoked [facility] Start: 1975 Sex Assigned At Female W [facility] Start: 05-27-2022 End: 06-06-2022 Exposure to SARS-CoV-2 (event) Not sure [facility] Start: 05-29-2021 End: 06-03-2023 History of Social function [facility] Start: 05-29-2021 End: 06-03-2023 Social connection and isolation panel [facility] How often do you get together with friends or relatives? Patient refused [facility] Do you belong to any clubs or organizations such as spiritism groups, unions, fraternal or athletic groups, or school groups? Yes [facility] Are you now , , , , never or living with a partner? [facility] How often to you hav e a drink containing alcohol? Monthly or less [facility] How many standard dr inks containing alcohol do you have on a typical day? 1 or 2 [facility] How often do you hav e 6 or more drinks on 1 occasion? Never [facility] Do you feel stress - tense, restless, nervous, or anxious, or unable to sleep at night because your mind is troubled all the time - these days [OSQ] Not at all [facility] (I/We) worried wheth er (my/our) food would run out before (I/we) got money to buy more. Never true [facility] In the past 12 month s, was there a time when you were not able to pay the mortgage or rent on time? No [facility] Start: 11-08-2022 Sex Female (finding) [facility] Clinical Notes 09-22-2007 to 06-07-2025 Sarah Wills PA-C - 12/24/2024 9:00 AM EDTPatient InstructionsPatient InstructionsTalJoesph yan MD - 06/24/2024 8:13 AM EDTTelephone Encounter - Rosalia Ricci APRN.CNS - 06/22/2024 3:50 PM EDT Note Date & Type Note Facility 06-07-2025 Progress note [facility] 12-24-2024 History of Present illness Narrative DATE OF SERVICE: 12/24/2024 PATIENT NAME: Michela Schmidt : 1975 AGE: 49 y.o. CLINIC NUMBER: [id number] Visit type: Established patient Chief Complaint Patient presents with Follow-up MARKUS-11/20/2022,MINNA Subjective HISTORY OF PRESENT ILLNESS: This is a 49 y.o. female who presents for evaluation of skin lesions; last seen 11/20/2022 with Sarah Wills PA-C. Patient has no specific spots in particular she wants looked at. Patient has no h/o of ATN. Patient has no h/o of AKs. Patient has no personal h/o skin cancer. Patient has no family h/o melanoma. History of pacemaker/ defibrillator? No History of HIV/ Hep C? No Allergies to Lidocaine, Epinephrine, Latex or Adhesive? No Review of Systems There were no vitals filed for this visit. PHYSICAL EXAM GENERAL APPEARANCE:?Alert & oriented x3, pleasant. Well developed, well nourished. PSYCH: appropriate mood and affect DERMATOLOGY: (all measurements are in cm, unless otherwise noted) 1. Actinic skin damage Skin shows depigmentation, telangiectasia's, and reduced elasticity The nature of sun-induced photo-aging and skin cancers was discussed. Sun avoidance, protective clothing, and the use of Broad spectrum (UVA and UVB) minimum 30-SPF sunscreens is advised. Apply sunscreen 30 minutes prior to sun exposure, and reapply every 2 hours and as needed after swimming or sweating. Observe closely for skin damage/changes, and call if such occurs. Recommended Adapalene 0.1% gel-sample trade given to use 2 times weekly at night then increase as tolerated. Stressed importance of wearing sunscreen SPF 30 or greater every morning Sample of Miranda Posay Avalon cream to help with pigmentation under her eyes 2. Encounter for skin care SKIN TYPE: II Educated on signs of skin cancer, skin cancer causes, prevention, and risk of developing skin cancers in the future. Sun protection measures reviewed, recommended monthly self skin exams and annual full skin exam. Mineral sunscreen are recommended to avoid burning of the eyes-several OTC options given along with samples to try. 3. Solar lentigo Light brown well-circumscribed macule(s) Educated and reassured, benign finding secondary to sun exposure. Patient educated on the proper use of sunscreen, SPF, and how often to reapply. Recommend use of OTC mineral sun block, like Neutrogena or La-Jerry Posay. Patient advised to look for zinc or titanium as the active ingredient(s). Try to limit sun exposure to motor tune up specialist or late evening hours. Patient advised to perform self-skin checks and call for follow up appointment if any new or concerning lesions detected. 4. Seborrheic keratosis (7) Generalized, Left Forearm - Posterior, Left Hand - Posterior, Left Wrist - Posterior, Right Forearm - Posterior, Right Hand - Posterior, Right Wrist - Posterior Pabon-brown waxy papule(s) and plaque(s) Reassured that this is a benign lesion and does not require any treatment. Educated that if the lesion changes color, becomes larger, bleeds, becomes bothersome or painful then it should be reevaluated. Patient expresses understanding and is agreeable to plan. 5. Multiple benign melanocytic nevi of both upper extremities, both lower extremities, and trunk Scattered uniform pabon/brown nevoid macules and papules; showing normal patterns with dermoscopy Reassured that this is a benign lesion and does not require any treatment. Educated that if the lesion changes color, becomes larger, bleeds, becomes bothersome or painful then it should be reevaluated. Patient expresses understanding and is agreeable to plan. 6. Philip angioma Bright red vascular papule(s) Reassured that this is a benign lesion and does not require any treatment. Educated that if the lesion changes color, becomes larger, bleeds, becomes bothersome or painful then it should be reevaluated. Patient expresses understanding and is agreeable to plan. 7. Scar Right Breast Erythematous linear recent scar secondary to mole removed from [facility] Reassured that this is a benign lesion and does not require any treatment. Educated that if the lesion changes color, becomes larger, bleeds, becomes bothersome or painful then it should be reevaluated. Patient expresses understanding and is agreeable to plan. Recommended Serica scar gel cream and to massage area several times daily. Coupon given. 8. Milia Mid Forehead Firm white papule(s) Reassured that this is a benign lesion and does not require any treatment. Educated that if the lesion changes color, becomes larger, bleeds, becomes bothersome or painful then it should be reevaluated. Patient expresses understanding and is agreeable to plan. 9. Skin tags, multiple acquired (2) Neck - Anterior, Right Breast Flesh colored pedunculated papule(s) without signs of irritation/inflammation. Reassured that this is a benign lesion and does not require any treatment. Educated that if the lesion changes color, becomes larger, bleeds, becomes bothersome or painful then it should be reevaluated. Patient expresses understanding and is agreeable to plan. No follow-ups on file. Sarah Wills PA-C 12/24/24 8:05 AM REFERRING MD: documented in this encounter [facility] 12-24-2024 Instructions Stiven Salazar RN - 12/24/2024 9:00 AM EDT Serica cream Mineral suncreen documented in this encounter [facility] 06-24-2024 Instructions Joesph Wolf MD - 06/24/2024 9:06 AM EDT - Continue taking Levothyroxine 112 mcg daily as prescribed. - Levothyroxine refills sent to [facility]; ensure you receive the [employer] brand. - Lab orders for thyroid function tests (TSH, T3, T4) and thyroid peroxidase antibody test are placed; complete these tests as scheduled. - Maintain a balanced diet with a focus on reducing carbohydrate intake, especially in the morning; opt for protein-rich foods like eggs instead of high-carb options. - Aim for at least 120 minutes of physical activity per week, spread over at least five days; continue walking and consider incorporating more strenuous exercises if possible. - Avoid late-night snacking and heavy meals in the evening to help manage weight. - Refill for Xyzal (Levocetirizine) sent to [facility]; 90-day supply with 3 refills. - Consult order for vascular surgery placed for evaluation of varicose veins; you will be contacted to schedule an appointment. - Wear mild compression stockings to help manage varicose veins; these should be elastic and not overly tight. - Next follow-up appointment moved to May; you will be contacted to confirm the exact date. documented in this encounter [facility] 06-24-2024 History of Present illness Narrative This note was created using ApptheGamer[employer]. Subjective Michela Schmidt is a 48 year old female. HISTORY Michela Schmidt is a 48 year old lady here for yearly exam and follow up appointment. Michela Schmidt is a 48-year-old female with a history of hypothyroidism, presenting for a wellness visit and concerns about weight gain and varicose veins. Michela reports a gradual weight gain over the past year, noting an increase from 196 lbs in May 2021 to 202 lbs by October 27, with a subsequent rise to 208 lbs by July 2022. She attributes this weight gain to dietary habits, acknowledging that she does not eat the best and suspects a high carbohydrate intake. She engages in yard work and walks 2-3 days a week, averaging 3-6 miles per week, but does not participate in strenuous exercise. She denies experiencing stress and reports good sleep quality. Michela has a history of hypothyroidism and is currently on levothyroxine 112 mcg daily. She inquires about the potential benefits of natural thyroid supplements, mentioning that her sister has had positive experiences with them. She also expresses concern about the possibility of Harris's thyroiditis, noting that two of her three sisters have been diagnosed with the condition. She was tested for Harris's approximately 14 years ago and questions whether retesting is necessary. She reports that her T3 levels have been within the normal range, and her TSH levels were in the 3 range during her last check. Additionally, Michela reports a recurrence of varicose veins, which have become more prominent and tender over time. She previously underwent laser treatment and vein stripping by Dr. Yolanda Flores, but expresses dissatisfaction with the results, noting that the veins appear to have returned. She inquires about alternative treatment options and requests a referral to a different specialist. She denies feelings of depression, hopelessness, or anxiety. She has not been vaccinated for COVID-19 and has no known history of the virus. She is due for a tetanus shot and is currently taking Zyzol and Nasonex for allergies. She has no known medication allergies. She is also due for a refill of her levothyroxine prescription. PAST MEDICAL HISTORY Diagnosis Date Environmental allergies multiple grasses, trees, cat and dog Hypothyroidism Nonspecific abnormal results of thyroid function study VV (varicose veins) Current Outpatient Medications Medication Sig levocetirizine (XYZAL) 5 mg tablet Take 1 tablet by mouth once daily as needed. In the evening mometasone (NASONEX) 50 mcg/actuation nasal spray Use 2 Sprays in the nose once daily. Rinse mouth after use. levothyroxine (LEVOXYL) 112 mcg tablet Take 1 tablet by mouth once daily. Take on empty stomach. For thyroid. Patient should start on October 25, 2023. No current facility-administered medications for this visit. ALLERGIES Allergen Reactions Environmental [Othe* multiple grasses, trees, cat and dog FAMILY HISTORY Problem Relation Age of Onset Hypertension Mother Lipids Mother Diabetes Mother Type 2 Hypertension Father Lipids Father Coronary Artery Disease Father COPD Father Diabetes Father Type 2 Diabetes Sister Type 2 Thyroid Sister hypothyroid--Hashimotos (confirmed) other (colon polyp) Sister Hypertension Sister Thyroid Sister hypothyroid--Hashimotos (?) other (Colon polyps) Brother Hypertension Brother other (hypercholesterolemia) Brother Coronary Artery Disease Brother 60 stents placed other (Colon polyps) Brother other (Thyroid cancer) Maternal Aunt Colon Cancer Other 85 Social History Tobacco Use Smoking status: Never Smokeless tobacco: Never Substance Use Topics Alcohol use: No Drug use: No Review of Systems Objective LMP 05/22/2023 (Approximate) Physical Exam Vitals reviewed. Constitutional: Appearance: Normal appearance. She is well-developed. HENT: Head: Normocephalic and atraumatic. Right Ear: Tympanic membrane, ear canal and external ear normal. Left Ear: Tympanic membrane, ear canal and external ear normal. Nose: Nose normal. Mouth/Throat: Mouth: Mucous membranes are moist. Eyes: Conjunctiva/sclera: Conjunctivae normal. Pupils: Pupils are equal, round, and reactive to light. Neck: Thyroid: No thyromegaly. Vascular: No carotid bruit. Cardiovascular: Rate and Rhythm: Normal rate and regular rhythm. Pulses: Normal pulses. Heart sounds: Normal heart sounds. No murmur heard. No friction rub. No gallop. Pulmonary: Effort: Pulmonary effort is normal. Breath sounds: Normal breath sounds. Abdominal: General: Bowel sounds are normal. There is no distension. Palpations: Abdomen is soft. There is no mass. Tenderness: There is no abdominal tenderness. Musculoskeletal: General: No deformity. Normal range of motion. Right lower leg: No edema. Left lower leg: No edema. Lymphadenopathy: Cervical: No cervical adenopathy. Skin: General: Skin is warm and dry. Coloration: Skin is not jaundiced or pale. Findings: No rash. Neurological: General: No focal deficit present. Mental Status: She is alert and oriented to person, place, and time. Cranial Nerves: No cranial nerve deficit. Sensory: No sensory deficit. Motor: No abnormal muscle tone. Coordination: Coordination normal. Deep Tendon Reflexes: Reflexes normal. Psychiatric: Attention and Perception: Attention and perception normal. Mood and Affect: Mood and affect normal. Speech: Speech normal. Behavior: Behavior normal. Thought Content: Thought content normal. Cognition and Memory: Cognition and memory normal. Judgment: Judgment normal. Latest Ref Rng 06/05/2022 06/04/2023 11/07/2023 WBC 3.70 - 11.00 k/uL 6.71 8.25 6.47 RBC 3.90 - 5.20 m/uL 4.56 4.77 4.58 Hemoglobin 11.5 - 15.5 g/dL 13.4 13.9 13.1 Hematocrit 36.0 - 46.0 % 41.9 44.1 41.9 MCV 80.0 - 100.0 fL 91.9 92.5 91.5 MCH 26.0 - 34.0 pg 29.4 29.1 28.6 MCHC 30.5 - 36.0 g/dL 32.0 31.5 31.3 RDW-CV 11.5 - 15.0 % 13.1 12.7 13.1 Platelet Count 150 - 400 k/uL 462 (H) 501 (H) 464 (H) MPV 9.0 - 12.7 fL 9.4 9.3 9.2 Neut% % 65.5 Abs Neut (ANC) 1.45 - 7.50 k/uL 4.39 Lymph% % 23.8 Abs Lymph 1.00 - 4.00 k/uL 1.60 [place]% % 8.0 Abs [place] <0.87 k/uL 0.54 Eosin% % 1.8 Abs Eosin <0.46 k/uL 0.12 Baso% % 0.6 Abs Baso <0.11 k/uL 0.04 Immature Gran % % 0.3 IMMATURE GRANS (ABS) <0.10 k/uL <0.03 NRBC /100 WBC 0.0 Absolute nRBC <0.01 k/uL <0.01 <0.01 <0.01 DTYPE Auto Protein, Total 6.3 - 8.0 g/dL 7.3 7.7 7.0 Albumin 3.9 - 4.9 g/dL 4.3 4.6 4.3 Calcium 8.5 - 10.2 mg/dL 9.2 9.3 9.2 Bilirubin, Total 0.2 - 1.3 mg/dL 0.2 0.3 0.3 Alkaline Phosphatase 34 - 123 U/L 76 79 76 AST 13 - 35 U/L 16 18 18 ALT 7 - 38 U/L 11 17 13 Glucose 74 - 99 mg/dL 97 90 87 BUN 7 - 21 mg/dL 11 13 9 Creatinine 0.58 - 0.96 mg/dL 0.92 0.88 0.94 Sodium 136 - 144 mmol/L 139 138 140 Potassium 3.7 - 5.1 mmol/L 4.6 4.2 4.5 Chloride 97 - 105 mmol/L 103 102 104 CO2 22 - 30 mmol/L 26 23 27 Anion Gap 9 - 18 mmol/L 10 13 9 eGFR >=60 mL/min/1.73m 78 82 75 Cholesterol, Total <200 mg/dL 148 140 Triglyceride <150 mg/dL 64 73 HDL Cholesterol >39 mg/dL 44 44 Non HDL Cholesterol <130 mg/dL 104 96 Fasting Time hrs 12 13 VLDL Cholesterol <30 mg/dL 13 15 TC:HDL Ratio <5.10 3.36 3.18 LDL Cholesterol <100 mg/dL 91 81 LDL:HDL Ratio <2.54 2.07 1.84 Iron 41 - 186 ug/dL 66 TIBC 232 - 386 ug/dL 370 Transferrin Saturation 15.0 - 57.0 % 17.8 Hemoglobin A1C 4.3 - 5.6 % 5.2 5.2 Estimated Average Glucose mg/dL 103 103 TSH 0.270 - 4.200 mIU/L 4.050 2.460 3.140 Free T4 0.9 - 1.7 ng/dL 1.2 1.3 1.3 Free T3 2.3 - 4.1 pg/mL 3.5 3.3 3.2 Magnesium 1.7 - 2.3 mg/dL 2.3 Vitamin D 25 Hydroxy 31.0 - 80.0 ng/mL 38.7 Vitamin B12 232 - 1,245 pg/mL 413 Folate >4.7 ng/mL 9.9 Legend: (H) High Assessment and Plan # Routine medical exam (Z00.00) - Completed comprehensive physical examination. - Discussed health maintenance, including the importance of regular exercise and a balanced diet. - Patient is due for a tetanus booster; recommended Tdap or tetanus vaccine. - Patient to follow up with Dr. Livingston for routine care. # Acquired hypothyroidism (E03.9) - Current medication: Levothyroxine 112 mcg daily. - Recent thyroid function tests show TSH in the 3 range, T3 and T4 levels within normal limits. - Discussed the possibility of adjusting levothyroxine dose to aim for a TSH level between 1-2. - Ordered thyroid function tests to be done every six months. - Refilled levothyroxine prescription, specified Mylan brand, sent to [facility] [place]. - Discussed the role of Harris's thyroiditis as a common cause of hypothyroidism; ordered thyroperoxidase antibodies test. # IFG (impaired fasting glucose) (R73.01) # Encounter for long-term current use of medication (Z79.899) - Refilled Xyzal prescription, 90-day supply with 3 refills, sent to [facility]. - Nasonex prescription has refills available until November. # Vitamin D deficiency (E55.9) - Previous labs showed vitamin D levels on the lower end. - Ordered vitamin D level to be checked every six months. # Varicose veins of both lower extremities with pain (I83.813) - Patient reports tenderness and worsening appearance of varicose veins, especially in the left leg. - Discussed the use of mild compression stockings to alleviate symptoms. - Ordered a vascular surgery consult for further evaluation and management. # Screening for depression (Z13.31) - Negative for symptoms of depression. # Encounter for screening examination for other mental health and behavioral disorders (Z13.39) - Negative for symptoms of anxiety. # Class 2 obesity due to excess calories without serious comorbidity with body mass index (BMI) of 35.0 to 35.9 in adult (E66.812) - Discussed gradual weight gain over the past year. - Educated on the impact of menopause on metabolism and weight gain. - Emphasized the importance of a balanced diet, reducing carbohydrate intake, and increasing protein consumption. - Recommended at least 120 minutes of physical activity per week, spread over at least five days. - Ordered labs to check thyroid function and vitamin D levels, which can impact weight management. Joesph Wolf MD documented in this encounter [facility] 06-22-2024 Telephone encounter Note No answer. Left providers message and ask to call office and ask to speak to a nurse with any questions or concerns [facility] 06-22-2024 Miscellaneous Notes No answer. Left providers message and ask to call office and ask to speak to a nurse with any questions or concerns Joesph Wolf MD notes indicate she can do labs yearly. Last labs were October 2023. Next due October 2024. I did order hep B testing per request. Pt calls office requesting orders for labs prior to her upcoming appt on 06/24/24. Pt also states she needs a Hep B titer for work, asking if this can be added to orders. Please advise and notify pt. Nito Garcia LPN documented in this encounter [facility] 06-22-2024 Telephone encounter Note Joesph Wolf MD notes indicate she can do labs yearly. Last labs were October 2023. Next due October 2024. I did order hep B testing per request. [facility] 06-22-2024 Telephone encounter Note Pt calls office requesting orders for labs prior to her upcoming appt on 06/24/24. Pt also states she needs a Hep B titer for work, asking if this can be added to orders. Please advise and notify pt. Nito Garcia LPN [facility] 02-11-2024 Telephone encounter Note Form has been signed and faxed. [facility] 02-11-2024 Miscellaneous Notes Form has been signed and faxed. Where is form to sign? Spoke with patient, waist measurement 41. Form completed and PCP to sign. Nicole Corbett LPN Patient sent [employer] message. Nicole Corbett LPN Patient dropped off wellness form for work. Patient would like to be called when form has been completed. Form has been filled out and at providers nurse desk for signature. Form requires waist circumference which was not taking at visit in May. Attempted to contact patient to ask for a waist circumference so can complete form but no answer, left message for patient to call office and ask to speak to a nurse with measurement. documented in this encounter [facility] 02-10-2024 Telephone encounter Note Where is form to sign? [facility] 02-10-2024 Telephone encounter Note Spoke with patient, waist measurement 41. Form completed and PCP to sign. Nicole Corbett LPN T [facility] 02-07-2024 Telephone encounter Note Patient sent [employer] message. Nicole Corbett LPN T [facility] 02-06-2024 Telephone encounter Note Patient dropped off wellness form for work. Patient would like to be called when form has been completed. Form has been filled out and at providers nurse desk for signature. Form requires waist circumference which was not taking at visit in May. Attempted to contact patient to ask for a waist circumference so can complete form but no answer, left message for patient to call office and ask to speak to a nurse with measurement. [facility] 12-20-2023 Telephone encounter Note Patient calling asking for refill on her allergy medications. Patient said she is just having a hard time with the trees blooming. Pending rx to file to [facility] pharmacy. Please advise Patient has been identified by name and date of : Patient phones for refill(s): Requested Prescriptions Pending Prescriptions Disp Refills levocetirizine (XYZAL) 5 mg tablet 30 tablet 11 Sig: Take 1 tablet by mouth once daily as needed. In the evening mometasone (NASONEX) 50 mcg/actuation nasal spray 1 g Sig: Use 2 Sprays in the nose once daily. Rinse mouth after use. Date of last office visit in primary care: 06/12/2023 Date of next office visit in primary care: 06/24/2024 Please advise. Thank you. Mee Villa LPN. [facility] 12-20-2023 Miscellaneous Notes Patient calling asking for refill on her allergy medications. Patient said she is just having a hard time with the trees blooming. Pending rx to file to [facility]. Please advise Patient has been identified by name and date of : Patient phones for refill(s): Requested Prescriptions Pending Prescriptions Disp Refills levocetirizine (XYZAL) 5 mg tablet 30 tablet 11 Sig: Take 1 tablet by mouth once daily as needed. In the evening mometasone (NASONEX) 50 mcg/actuation nasal spray 1 g Sig: Use 2 Sprays in the nose once daily. Rinse mouth after use. Date of last office visit in primary care: 06/12/2023 Date of next office visit in primary care: 06/24/2024 Please advise. Thank you. Mee Villa LPN. documented in this encounter [facility] 11-04-2023 Miscellaneous Notes Patient notified and verbalized understanding. Ira Briseno MA I ordered usual labs for fatigue work up. Noted that Vitamin D might not be covered for fatigue. Note that other Vitamin levels might also not be covered either so did not order anything more--note deficiencies in other vitamins are usually rare anyway. Patient reports she has been feeling tired for the past few months, and asking if pcp could order a full blood work panel, including vitamins, iron, and hormones? Reports she still has regular periods and not sure where she is at in that cycle. Asking if she needs appt for provider to order labs? Last ov 06-12-23 Please advise patient. documented in this encounter [facility] 06-12-2023 History of Present illness Narrative CHIEF COMPLAINT: Patient presents with: Physical HISTORY: Michela Schmidt is a 47 year old female who presents 06/12/2023 for her Yearly Physical Exam. They are here today for a wellness exam. Generally feels well and does not have complaints. Does wear a seatbelt when riding in a car. Does have smoke detectors and a carbon monoxide detector in the home. Is able to complete ADL's with independence. Michela Schmidt is an 47 year old female is here today for evaluation of hypothyroidism. Currently takes medication for this. Is tolerating medication well. Trying to walk more, being more active. Weight watchers in the past. 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 No Q2: Over the past two weeks, have you felt little interest or pleasure in doing things? 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 Are periods regular? Yes Any concerns about her periods? No Family Hx Breast CA: no Family Hx Colon CA: no Past Medical History: PAST MEDICAL HISTORY Diagnosis Date Hypothyroidism Nonspecific abnormal results of thyroid function study VV (varicose veins) Family Medical History: FAMILY HISTORY Problem Relation Age of Onset Hypertension Mother Lipids Mother Diabetes Mother Type 2 Hypertension Father Lipids Father Coronary Artery Disease Father COPD Father Diabetes Father Type 2 Diabetes Sister Type 2 Thyroid Sister hypothyroid--Hashimotos (confirmed) other (colon polyp) Sister Thyroid Sister hypothyroid--Hashimotos (?) other (Colon polyps) Brother other (Colon polyps) Brother other (Thyroid cancer) Maternal Aunt Colon Cancer Other 85 Social History: Social History Tobacco Use Smoking status: Never Smokeless tobacco: Never Substance Use Topics Alcohol use: No Drug use: No Allergies: ALLERGIES Allergen Reactions Environmental [Othe* multiple grasses, trees, cat and dog Medications: Current Outpatient Medications Medication Sig levothyroxine (LEVOXYL) 112 mcg tablet Take 1 tablet by mouth once daily. Take on empty stomach. For thyroid. levocetirizine (XYZAL) 5 mg tablet Take 1 tablet by mouth once daily as needed. In the evening mometasone (NASONEX) 50 mcg/actuation nasal spray Use 2 Sprays in the nose once daily. Rinse mouth after use. (Patient not taking: Reported on 05/31/2021 ) No current facility-administered medications for this visit. Chronic Problem List: ACTIVE PROBLEM LIST Obesity, Class II, Bmi 35-39.9 - 06/12/2023 Class 1 Obesity Due to Excess Calories Without Serious Comorbidity With Body Mass Index (Bmi) of 31.0 to 31.9 in Adult - 01/14/2018 Dizziness and Giddiness - 06/14/2016 Comment: Worked up in past, ENT, Labs Varicose Veins of Lower Extremities With Other Complications - 12/28/2011 Hypothyroidism Allergic Rhinitis - 03/18/2007 Review of Systems Review of Systems Constitutional: Negative. Respiratory: Negative. OBJECTIVE BP 102/70 Pulse 83 Ht 5' 4.25 (1.63m) Wt 208 lb (94.3kg) SpO2 98% LMP 05/22/2023 BMI 35.42 kg/(m^2). Physical Exam Vitals and nursing note reviewed. Constitutional: General: She is awake. She is not in acute distress. Appearance: Normal appearance. She is well-developed and well-groomed. She is not ill-appearing, toxic-appearing or diaphoretic. HENT: Head: Normocephalic. Right Ear: External ear normal. Left Ear: External ear normal. Nose: Nose normal. Eyes: General: Vision grossly intact. Conjunctiva/sclera: Conjunctivae normal. Pupils: Pupils are equal, round, and reactive to light. Neck: Thyroid: No thyroid mass, thyromegaly or thyroid tenderness. Vascular: No carotid bruit or JVD. Trachea: Trachea normal. Cardiovascular: Rate and Rhythm: Normal rate and regular rhythm. Pulses: Normal pulses. Heart sounds: Normal heart sounds. No murmur heard. Pulmonary: Effort: Pulmonary effort is normal. No accessory muscle usage, prolonged expiration or respiratory distress. Breath sounds: Normal breath sounds. Musculoskeletal: Cervical back: Normal range of motion and neck supple. Right lower leg: No edema. Left lower leg: No edema. Skin: General: Skin is warm and dry. Capillary Refill: Capillary refill takes less than 2 seconds. Neurological: General: No focal deficit present. Mental Status: She is alert and oriented to person, place, and time. Mental status is at baseline. Psychiatric: Attention and Perception: Attention and perception normal. Mood and Affect: Mood and affect normal. Speech: Speech normal. Behavior: Behavior normal. Behavior is cooperative. Thought Content: Thought content normal. Cognition and Memory: Cognition and memory normal. Judgment: Judgment normal. ASSESSMENT/PLAN: 1. Wellness examination - ICD9: V70.0, ICD10: Z00.00 (primary diagnosis) - Counseled on healthy diet and regular exercise - Calcium intake with supplements or by diet of 1000 mg/day for under 50, 4417-8814 mg/day for 50+ - Depression screening tool completed and reviewed with patient. Based on score and interview, patient is not at risk for depression and recommended no further intervention at this time. - Follow up for annual exam in one year 2. Acquired hypothyroidism - ICD9: 244.9, ICD10: E03.9 - Instructed patient on importance of taking on an empty stomach either first thing in the morning or at bedtime. 3. Obesity, Class II, BMI 35-39.9 - ICD9: 278.00, ICD10: E66.9 Working on weight loss. Wellness exam completed. Health maintenance reviewed and updated. Chronic conditions and medications reviewed and updated as needed. Encouraged regular physical activity as tolerated, Healthy diet, and health promoting lifestyle. Encouraged regular eye doctor and dental visits. Portions of this note have been entered by ancillary staff. I have reviewed and when necessary edited, so that they are an adequate record of my encounter with this patient Please note that parts of this document were created using voice recognition software and therefore may contain grammatical errors. Patient verbalizes understanding of instructions from today's visit and in agreement with treatment plan. Questions answered. Agrees to call the office if questions, concerns or issues with acute symptoms not improving or if they worsen. See diagnoses and orders for additional plan(s). Allergies and medications were reviewed, list was updated, and refills given if needed. Past medical, surgical, social, and family history reviewed and updated as appropriate. Encouraged proper diet & exercise as well as compliance with taking medications. Age-appropriate health preventative measures were discussed. Return if symptoms worsen or fail to improve, for Keep next scheduled appointment.. Joy Kelley APRN-DEMETRICE documented in this encounter [facility] 06-03-2023 Miscellaneous Notes Patient has aannual wellness exam scheduled with Joy Kelley CNP for this Saturday. Labs have already been ordered by Dr. Wolf for pt ot have drawn prior to appt. Pt calling to ask if Joy would kindly add on a HGBA1C also? Pt states sibling has pre-diabetes and diabetes runs in family. Has not had A1C checked in awhile. No call back needed to pt if provider able to place lab order as requested. Thank you. documented in this encounter [facility] 11-16-2022 Miscellaneous Notes Patient is out of medication at this time. Has appointment 05/2023. Will need at least 3 refills to get her to appointment. Patient phones requesting refills as follows: Requested Prescriptions Pending Prescriptions Disp Refills levothyroxine (LEVOXYL) 112 mcg tablet 90 tablet 3 Sig: Take 1 tablet by mouth once daily. Take on empty stomach. For thyroid. Please review and advise. Lois Moore LPN documented in this encounter [facility] 08-07-2022 Nurse Note Pt received in PACU. Pt mildly drowsy, but arouses very easily. Denies pain or nausea. Abd soft and non distended. Tamia Westbrook RN documented in this encounter [facility] 08-07-2022 History and physical note PROCEDURAL SEDATION HISTORY AND PHYSICAL EXAM SERVICE DATE: 08/07/2022 SERVICE TIME: 11:12 AM Subjective HPI: This is a 46 year old female who presents for screening colonoscopy PAST ANESTHESIA HISTORY: No history of adverse event PAST MEDICAL HISTORY Diagnosis Date Hypothyroidism Nonspecific abnormal results of thyroid function study VV (varicose veins) PAST SURGICAL HISTORY Procedure Laterality Date , CLASSIC, IN-HOSP CARE x2 CHOLECYSTECTOMY 08/26/1997 Cholecystectomy PAST SURGICAL HISTORY OF bilateal GSV EV LT, right Prior to Admission medications as of 08/07/22 1057 Medication Sig Last Dose Taking levothyroxine (LEVOXYL) 112 mcg tablet Take 1 tablet by mouth once daily. Take on empty stomach. For thyroid. 08/07/2022 at 0830 Yes levocetirizine (XYZAL) 5 mg tablet Take 1 tablet by mouth once daily as needed. In the evening Unknown mometasone (NASONEX) 50 mcg/actuation nasal spray Use 2 Sprays in the nose once daily. Rinse mouth after use. Patient not taking: Reported on 05/31/2021 ALLERGIES Allergen Reactions Environmental [Othe* multiple grasses, trees, cat and dog Objective PHYSICAL EXAM: The remainder of the physical exam is noncontributory. AIRWAY: Airway Visualization of Uvula: Yes Mouth opening greater than 2 fingerbreadths: Yes Neck Full Range of Motion: Yes LUNGS: Lungs clear to auscultation CARDIAC: Regular rhythm,Regular rate Assessment/Plan ASA Class: ASA Class:: Patient with mild systemic disease Active Problems: * No active hospital problems. * Resolved Problems: * No resolved hospital problems. * Medication and Non-Pharmacologic VTE Prophylaxis/Anticoagulants VTE Prophylaxis: VTE prophylaxis appropriate Provisional Diagnosis/Treatment Plan: screening colonoscopy SEDATION GOAL: Moderate SIGNATURE: Leland Lanier MD PATIENT NAME: Michela Schmidt DATE: August 07, 2022 TIME: 11:12 AM documented in this encounter [facility] 06-06-2022 History of Present illness Narrative 1st attempt to schedule colonoscopy, left VM JN 06/06 This note was created using ApptheGameriter. Subjective Michela Schmidt is a 46 year old female. HISTORY Michela Schmidt is a 46 year old lady here for yearly exam and follow up appointment. Overall doing well. Clinically euthyroid. Depression Screening 01/02/2018 05/19/2019 05/29/2021 06/06/2022 PHQ-2 Score 0 0 0 0 Depression screening tool completed and reviewed. Based on score and interview, patient is not at risk for depression. Screening tool discussed with patient, and I recommended no further intervention at this time. PAST MEDICAL HISTORY Diagnosis Date Hypothyroidism Nonspecific abnormal results of thyroid function study VV (varicose veins) Current Outpatient Medications Medication Sig levothyroxine (LEVOXYL) 112 mcg tablet Take 1 tablet by mouth once daily. Take on empty stomach. For thyroid. levocetirizine (XYZAL) 5 mg tablet Take 1 tablet by mouth once daily as needed. In the evening mometasone (NASONEX) 50 mcg/actuation nasal spray Use 2 Sprays in the nose once daily. Rinse mouth after use. (Patient not taking: Reported on 05/31/2021 ) No current facility-administered medications for this visit. ALLERGIES Allergen Reactions Environmental [Othe* multiple grasses, trees, cat and dog FAMILY HISTORY Problem Relation Age of Onset Hypertension Mother Lipids Mother Diabetes Mother Type 2 Hypertension Father Lipids Father Coronary Artery Disease Father COPD Father Diabetes Father Type 2 Diabetes Sister Type 2 Thyroid Sister hypothyroid--Hashimotos (confirmed) other (colon polyp) Sister Thyroid Sister hypothyroid--Hashimotos (?) other (Colon polyps) Brother other (Colon polyps) Brother other (Thyroid cancer) Maternal Aunt Colon Cancer Other 85 Social History Tobacco Use Smoking status: Never Smokeless tobacco: Never Substance Use Topics Alcohol use: No Drug use: No REVIEW OF SYSTEMS Review of Systems Objective BP 106/78 Pulse 71 Ht 163.8 cm (5' 4.5) Wt 93 kg (205 lb) LMP 07/22/2013 SpO2 98% BMI 34.64 kg/m Physical Exam Component Latest Ref Rng & Units 05/26/2021 09/05/2021 12/26/2021 06/05/2022 WBC 3.70 - 11.00 k/uL 6.96 6.71 RBC 3.90 - 5.20 m/uL 4.49 4.56 Hemoglobin 11.5 - 15.5 g/dL 13.1 13.4 Hematocrit 36.0 - 46.0 % 41.9 41.9 MCV 80.0 - 100.0 fL 93.3 91.9 MCH 26.0 - 34.0 pg 29.2 29.4 MCHC 30.5 - 36.0 g/dL 31.3 32.0 RDW-CV 11.5 - 15.0 % 12.6 13.1 Platelet Count 150 - 400 k/uL 440 (H) 462 (H) MPV 9.0 - 12.7 fL 9.4 9.4 Neut% % 65.1 65.5 Abs Neut (ANC) 1.45 - 7.50 k/uL 4.53 4.39 Lymph% % 25.4 23.8 Abs Lymph 1.00 - 4.00 k/uL 1.77 1.60 [place]% % 7.3 8.0 Abs [place] <0.87 k/uL 0.51 0.54 Eosin% % 1.6 1.8 Abs Eosin <0.46 k/uL 0.11 0.12 Baso% % 0.6 0.6 Abs Baso <0.11 k/uL 0.04 0.04 Immature Gran % % 0.3 IMMATURE GRANS (ABS) <0.10 k/uL <0.03 NRBC /100 WBC 0.0 Absolute nRBC <0.01 k/uL <0.01 <0.01 DTYPE Auto Nucleated Reds 0 /100 WBC 0.0 Diff Type Auto Diff Protein, Total 6.3 - 8.0 g/dL 6.9 7.3 Albumin 3.9 - 4.9 g/dL 4.4 4.3 Calcium 8.5 - 10.2 mg/dL 9.2 9.2 Bilirubin, Total 0.2 - 1.3 mg/dL 0.3 0.2 Alkaline Phosphatase 34 - 123 U/L 73 76 AST 13 - 35 U/L 18 16 Glucose 74 - 99 mg/dL 89 97 BUN 7 - 21 mg/dL 12 11 Creatinine 0.58 - 0.96 mg/dL 0.81 0.92 Sodium 136 - 144 mmol/L 139 139 Potassium 3.7 - 5.1 mmol/L 4.2 4.6 Chloride 97 - 105 mmol/L 102 103 CO2 22 - 30 mmol/L 26 26 Anion Gap 9 - 18 mmol/L 11 10 ALT 7 - 38 U/L 14 11 eGFR- >60 eGFR-All Other Races . >60 eGFR >=60 mL/min/1.73m 78 Cholesterol, Total <200 mg/dL 156 148 Triglyceride <150 mg/dL 78 64 HDL Cholesterol >39 mg/dL 44 44 LDL Cholesterol <100 mg/dL 96 91 Non HDL Cholesterol <130 mg/dL 112 104 Fasting Time hrs 12 12 VLDL Cholesterol <30 mg/dL 16 13 TC:HDL Ratio <5.10 3.55 3.36 LDL:HDL Ratio <2.54 2.18 2.07 Free T4 0.9 - 1.7 ng/dL 1.2 1.3 1.3 1.2 T3 79 - 165 ng/dL 135 TSH 0.270 - 4.200 mIU/L 5.540 (H) 4.630 (H) 1.930 4.050 Free T3 2.3 - 4.1 pg/mL 3.3 3.3 3.5 Assessment and Plan Encounter Diagnosis ICD-10-CM 1. Routine medical exam Z00.00 COMP METABOLIC PANEL CBC TSH BLD T4 FREE/FREE THYROX T3 FREE BLD LIPID PANEL BASIC 2. Acquired hypothyroidism E03.9 TSH BLD T4 FREE/FREE THYROX T3 FREE BLD TSH BLD T4 FREE/FREE THYROX T3 FREE BLD 3. Class 1 obesity due to excess calories without serious comorbidity with body mass index (BMI) of 34.0 to 34.9 in adult E66.09 Z68.34 4. Screening for colon cancer Z12.11 5. Special screening for malignant neoplasms, colon Z12.11 COLONOSCOPY SCREENING 6. Screening, lipid Z13.220 LIPID PANEL BASIC Patient here for yearly exam and follow up. Above issues addressed with patient. Patient involved in shared decision making for management of medical issues. History and medications reviewed. Epic updated as needed Refills taken care of and meds adjusted as indicated after reviewed history, exam and labs. Health Maintenance reviewed. Updated record and/or ordered tests as recorded. Encouraged on efforts at healthy diet and regular exercise and adequate sleep. Joesph Wolf MD [facility] OPEN ACCESS QUESTIONNAIRE 1. Are you currently having any new or unusual stomach/gastrointestinal issues at this time such as constipation, diarrhea, abdominal pain, rectal bleeding etc?No 2. Do you have any difficulty swallowing? No 3. Do you have any implanted devices such as a defibrillator, pacemaker, cardiac stents or deep brain stimulator? No 4. Do you take any Blood thinners such as Coumadin, Plavix, Xarelto, Eliquis, Brilinta or any other blood thinner? No 5. Do you have any new or past cardiac (heart) or pulmonary (lung) issues? No 6. Do you currently use any oxygen? No 7. Have you been hospitalized in the past 6 weeks? No 8. Have you had difficulty with anesthesia previously re: Difficult intubation? No Other difficulty or allergic reaction to anesthesia other than post op N/V? No 9. Are you on dialysis? No 10. Do you have any bleeding disorders such as hemophilia or Factor 5? No 11. Are you an Insulin Dependent Diabetic? No IF ANY OF THE TOP ELEVEN QUESTIONS ARE ANSWERED YES PLEASE SCHEDULE THE PATIENT FOR A CONSULT. N/A 12. Is the patient's BMI 40 or greater? No:Body mass index is 34.64 kg/m .. 13. Do you take any narcotics or anti-Anxiety medications? No 14. Do you use any illegal or recreational drugs including marijuana? No 15. Any alcohol use: No. 16. Have you been diagnosed with chronic liver disease such as hepatitis or cirrhosis? No 17. Do you have a seizure disorder? No 18. Do you have ulcerative colitis or Crohn's disease? No 19. Are you or could you be ? No 20. Any other important health information we should be made aware of prior to your colonoscopy? No To be completed by LIP: Did patient have MAC anesthesia with a previous endoscopy procedure? No Patient appropriate for Open Access Colonoscopy: Yes: appropriate for Open Access Procedure Checklist: Prior to closing the encounter: Complete questionnaire: Yes Confirm Prep order has been Ordered/Pended: Yes. Patient's procedure could be delayed if not given the script for the prep. Please ensure the prep is escripted to pharmacy or printed. Instructions for the prep will print upon filing or pending this smartset. Please send all open access questionnaires to [facility] Pool #[id number] documented in this encounter [facility] 06-06-2022 Instructions Joesph Wolf MD - 06/06/2022 8:52 AM EDT Images from the original note were not included. Miralax/Dulcolax Bowel Prep For this bowel preparation, you will need to purchase the following medications at any pharmacy: Over the counter Miralax (generic name is polyethylene glycol) 8.3 oz or 238 grams Four (4) Dulcolax (generic name is Bisacodyl) tablets 3 days prior to your procedure, you need to be on a low fiber diet (Such as popcorn, beans, seeds, nuts, salad and raw vegetables, corn, fresh and dried fruit and multi-grain bread) YOU MUST BE ON CLEAR LIQUIDS FOR 2 FULL DAYS PRIOR TO YOUR COLONOSCOPY Day one which would be two days before your colonoscopy, you will need to be on clear liquids all day. You may have coffee or tea-black only (no cream), clear broths (beef, chicken or vegetable), apple juice, white grape juice, pop, Gatorade, Powerade, lemonade, Jello, popsicles, Dylan-aid, and water-But nothing red or dark purple in color and no dairy products, tomato or orange juices. Day two which would be the day before your colonoscopy continue clear liquids all day as above. And follow the instructions below: 8:00 AM - Mix the Miralax with 64 oz of Gatorade or another clear liquid of choice and place in refrigerator. Most people say the drink is better cold. 4:00 PM - Take 2 of the Dulcolax tablets with 8 oz of water. 6:00 PM - Start to drink the Miralax mixture. You must finish it by midnight. 8:00 PM - Take the other 2 Dulcolax tablets with 8 oz of water. You may continue to drink clear liquids while you are taking your prep and after you finish it as long as it is before midnight. Drink lots of fluids so you don t become dehydrated. Nothing to drink after midnight the night before the procedure unless you are instructed differently by the physician or nurses. Please remember to take your normal medications the morning of the procedure with a small sip of water especially your blood pressure medications. If you are diabetic, you need to contact your physician about how to take your diabetic medications and/or insulin during the prepping period and the day of your procedure. Any questions please call: Dr. Hernández or Dr. Lanier [phone] Rossy Ramon [phone] Dr. Tan [phone] [facility] nurses [phone] documented in this encounter [facility] 06-01-2022 Miscellaneous Notes Patient calling asking for lab work orders she has physical scheduled for 06/06/2022. Last labs were done December 2021 for thyroid check. Pending orders if wanted, needs diagnosis. Please advise Patient also asking for rx refill. Patient has been identified by name and date of : Yes Patient phones for refill(s): Requested Prescriptions Pending Prescriptions Disp Refills levothyroxine (LEVOXYL) 112 mcg tablet 90 tablet 1 Sig: Take 1 tablet by mouth once daily. Take on empty stomach. For thyroid. Date of last office visit in primary care: 05/30/2021, has appt 06/06/2022 Last 2 Encounter Wt Readings: Date: Wt: 10/27/2021 91.6 kg (202 lb) 05/31/2021 88.9 kg (196 lb) Previous labs/tests for medication: Thyroid: TSH Date Value 12/26/2021 1.930 mIU/L 09/05/2021 4.630 uU/mL Please advise. Thank you. Mee Villa LPN documented in this encounter [facility] 10-27-2021 Note HNO ID: [id number] Author: Orquidea Victor APRN.[employer] Service: ? Author Type: Nurse Practitioner Type: Progress Notes Filed: 10/27/2021 1:58 PM Note Text: Patient presents with: Sinus Problem: 5 days HPI: Michela Schmidt is a 46 year old female who presents to the office today for review of health conditions. She is an established patient of Dr. Wolf and new to me today. Concerns today: Starting 4 days ago, drainage down her throat, and then progressed. Nasal congestion, face pain, teeth pain, coughing a bit r/t the drainage. Advil does offer some relief. Sudafed helps somewhat-makes her a bit loopy. No known sick contacts. No fevers. Does have recurrent sinus infections-a couple/year. Last 3 Encounter BP Readings: Date: BP: 10/27/2021 104/62 05/31/2021 102/80 05/25/2020 112/74 PAST MEDICAL HISTORY Diagnosis Date - Hypothyroidism - Nonspecific abnormal results of thyroid function study - VV (varicose veins) PAST SURGICAL HISTORY Procedure Laterality Date - , CLASSIC, IN-HOSP CARE x2 - CHOLECYSTECTOMY 1998 Cholecystectomy - PAST SURGICAL HISTORY OF bilateal GSV EV LT, right Social History Tobacco Use - Smoking status: Never Smoker - Smokeless tobacco: Never Used Substance Use Topics - Alcohol use: No - Drug use: No FAMILY HISTORY Problem Relation Age of Onset - Hypertension Mother - Lipids Mother - Diabetes Mother Type 2 - Hypertension Father - Lipids Father - Coronary Artery Disease Father - COPD Father - Diabetes Father Type 2 - Diabetes Sister Type 2 - Thyroid Sister hypothyroid--Hashimotos (confirmed) - other (colon polyp) Sister - Thyroid Sister hypothyroid--Hashimotos (?) - other (Colon polyps) Brother - other (Colon polyps) Brother - other (Thyroid cancer) Maternal Aunt - Colon Cancer Other 85 Allergies: ALLERGIES Allergen Reactions - Environmental [Othe* multiple grasses, trees, cat and dog Current Meds: levothyroxine (LEVOXYL) 112 mcg tablet Take 1 tablet by mouth once daily. Take on empty stomach. For thyroid. levocetirizine (XYZAL) 5 mg tablet Take 1 tablet by mouth once daily as needed. In the evening mometasone (NASONEX) 50 mcg/actuation nasal spray Use 2 Sprays in the nose once daily. Rinse mouth after use. Review of Systems All other systems reviewed and are negative. See HPI PE: 10/27/21 1331 BP: 104/62 Pulse: 75 Resp: 16 Temp: 36.1 ?C (97 ?F) TempSrc: Tympanic SpO2: 99% Weight: 91.6 kg (202 lb) Physical Exam Vitals and nursing note reviewed. Constitutional: Appearance: Normal appearance. HENT: Head: Normocephalic and atraumatic. Right Ear: Hearing, ear canal and external ear normal. Tympanic membrane is perforated. Left Ear: Hearing, tympanic membrane, ear canal and external ear normal. Ears: Comments: Likely chronic perforation Nose: Congestion present. Right Turbinates: Pale. Left Turbinates: Pale. Right Sinus: Maxillary sinus tenderness and frontal sinus tenderness present. Left Sinus: Maxillary sinus tenderness and frontal sinus tenderness present. Mouth/Throat: Mouth: Mucous membranes are moist. Pharynx: Oropharynx is clear. No oropharyngeal exudate or posterior oropharyngeal erythema. Cardiovascular: Rate and Rhythm: Normal rate and regular rhythm. Pulses: Normal pulses. Heart sounds: Normal heart sounds. Pulmonary: Effort: Pulmonary effort is normal. Breath sounds: Normal breath sounds. Musculoskeletal: Cervical back: Normal range of motion and neck supple. Neurological: General: No focal deficit present. Mental Status: She is alert and oriented to person, place, and time. Psychiatric: Mood and Affect: Mood normal. Behavior: Behavior normal. ASSESSMENT/PLAN: 1. Acute non-recurrent pansinusitis - ICD9: 461.8, ICD10: J01.40 - Supportive care with plenty of fluids, rest, and analgesia prn. - Follow up in one week if symptoms persist or worsen.- Will begin treatment with as per antibiotic as written, see orders - METHYLPREDNISOLONE 4 MG TABLETS IN A DOSE PACK - AMOXICILLIN 875 MG-POTASSIUM CLAVULANATE 125 MG TABLET Orquidea Victor APRN.[employer] To ER if develops chest pain, shortness of breath, or severe worsening of symptoms. Discussed risks, benefits, alternatives, and potential side effects of medications. Patient expressed understanding and agreed with the plan. Orquidea Victor APRN.[employer] [address] [place] [address] [facility] 05-31-2021 Note HNO ID: [id number] Author: Joesph Wolf MD Service: ? Author Type: Physician Type: Progress Notes Filed: 07/17/2021 12:08 AM Note Text: This note was created using ApptheGameriter. Subjective Michela Schmidt is a 45 year old female. HISTORY Michela Schmidt is a 45 year old lady here for yearly exam and follow up appointment. PAST MEDICAL HISTORY Diagnosis Date - Hypothyroidism - Nonspecific abnormal results of thyroid function study - VV (varicose veins) Current Outpatient Medications Medication Sig - levothyroxine (LEVOXYL) 75 mcg tablet Take 1 tablet by mouth once daily. TAKE ON AN EMPTY STOMACH. ID#[id number] - Levocetirizine (XYZAL) 5 mg tablet Take 1 tablet by mouth once daily as needed. In the evening - mometasone (NASONEX) 50 mcg/actuation nasal spray Use 2 Sprays in the nose once daily. Rinse mouth after use. (Patient not taking: Reported on 05/31/2021 ) No current facility-administered medications for this visit. ALLERGIES Allergen Reactions - Environmental [Othe* multiple grasses, trees, cat and dog FAMILY HISTORY Problem Relation Age of Onset - Hypertension Mother - Lipids Mother - Diabetes Mother Type 2 - Hypertension Father - Lipids Father - Coronary Artery Disease Father - COPD Father - Diabetes Father Type 2 - Diabetes Sister Type 2 - other (Colon polyps) Brother - other (Colon polyps) Brother - Thyroid Sister hypothyroid--Hashimotos (confirmed) - other (colon polyp) Sister - Thyroid Sister hypothyroid--Hashimotos (?) - other (Thyroid cancer) Maternal Aunt - Colon Cancer Other 85 Social History Tobacco Use - Smoking status: Never Smoker - Smokeless tobacco: Never Used Substance Use Topics - Alcohol use: No - Drug use: No Review of Systems Objective BP 102/80 Pulse 82 Ht 166 cm (5' 5.35) Wt 88.9 kg (196 lb) LMP 07/22/2013 BMI 32.26 kg/m? Physical Exam Vitals reviewed. Constitutional: Appearance: She is well-developed. She is obese. HENT: Head: Normocephalic and atraumatic. Right Ear: External ear normal. Left Ear: External ear normal. Nose: Nose normal. Eyes: Conjunctiva/sclera: Conjunctivae normal. Neck: Thyroid: No thyromegaly. Vascular: No carotid bruit. Cardiovascular: Rate and Rhythm: Normal rate and regular rhythm. Pulses: Normal pulses. Heart sounds: Normal heart sounds. No murmur heard. No friction rub. No gallop. Pulmonary: Effort: Pulmonary effort is normal. Breath sounds: Normal breath sounds. Abdominal: General: Bowel sounds are normal. There is no distension. Palpations: Abdomen is soft. There is no mass. Tenderness: There is no abdominal tenderness. Musculoskeletal: General: No deformity. Normal range of motion. Lymphadenopathy: Cervical: No cervical adenopathy. Skin: General: Skin is warm and dry. Coloration: Skin is not jaundiced or pale. Findings: No rash. Neurological: General: No focal deficit present. Mental Status: She is alert and oriented to person, place, and time. Cranial Nerves: No cranial nerve deficit. Sensory: No sensory deficit. Motor: No abnormal muscle tone. Coordination: Coordination normal. Deep Tendon Reflexes: Reflexes normal. Psychiatric: Mood and Affect: Mood normal. Behavior: Behavior normal. Thought Content: Thought content normal. Judgment: Judgment normal. Component Latest Ref Rng AND Units 07/02/2019 05/25/2020 05/26/2021 WBC 3.70 - 11.00 k/uL 10.12 6.96 RBC 3.90 - 5.20 m/uL 4.75 4.49 Hemoglobin 11.5 - 15.5 g/dL 14.1 13.1 Hematocrit 36.0 - 46.0 % 45.5 41.9 MCV 80.0 - 100.0 fL 95.8 93.3 MCH 26.0 - 34.0 pG 29.7 29.2 MCHC 30.5 - 36.0 g/dL 31.0 31.3 RDW-CV 11.5 - 15.0 % 13.2 12.6 Platelet Count 150 - 400 k/uL 461 (H) 440 (H) MPV 9.0 - 12.7 fL 9.8 9.4 Neut% % 65.1 Abs Neut (ANC) 1.45 - 7.50 k/uL 4.53 Lymph% % 25.4 Abs Lymph 1.00 - 4.00 k/uL 1.77 [place]% % 7.3 Abs [place] <0.87 k/uL 0.51 Eosin% % 1.6 Abs Eosin <0.46 k/uL 0.11 Baso% % 0.6 Abs Baso <0.11 k/uL 0.04 Nucleated Reds 0 /100 WBC 0.0 Absolute nRBC <0.01 k/uL <0.01 <0.01 Diff Type Auto Diff Protein, Total 6.3 - 8.0 g/dL 7.8 6.9 Albumin 3.9 - 4.9 g/dL 4.6 4.4 Calcium 8.5 - 10.2 mg/dL 9.5 9.2 Bilirubin, Total 0.2 - 1.3 mg/dL 0.3 0.3 Alkaline Phosphatase 34 - 123 U/L 71 73 AST 13 - 35 U/L 21 18 Glucose 74 - 99 mg/dL 69 (L) 89 BUN 7 - 21 mg/dL 16 12 Creatinine 0.58 - 0.96 mg/dL 0.87 0.81 Sodium 136 - 144 mmol/L 138 139 Potassium 3.7 - 5.1 mmol/L 4.1 4.2 Chloride 97 - 105 mmol/L 102 102 CO2 22 - 30 mmol/L 24 26 Anion Gap 9 - 18 mmol/L 12 11 ALT 7 - 38 U/L 10 14 eGFR- >60 >60 eGFR-All Other Races . >60 >60 Cholesterol, Total <200 mg/dL 156 Triglyceride <150 mg/dL 78 HDL Cholesterol >39 mg/dL 44 LDL Cholesterol <100 mg/dL 96 Non HDL Cholesterol <130 mg/dL 112 Fasting Time hrs 12 VLDL Cholesterol <30 mg/dL 16 TC:HDL Ratio <5.10 3.55 LDL:HDL Ratio <2.54 2.18 Total Cholestero (more content not included)... [facility] 03-17-2021 Note Patient Outreach (IN [facility]) ------ MICHELA SCHMIDT ([id number]) 1975 F Date Time Provider Department 03/17/21 JOESPH WOLF During your visit today, we recorded the following information about you: Allergies As of Date: 03/17/2021 Noted Allergy Reaction environmental [Other] 07/16/2005 Comments: multiple grasses, trees, cat and dog Date Reviewed: 05/25/2020 Reviewed by: Glenna Bravo LPN - Fully Assessed Visit Diagnosis:Encounter for screening mammogram for breast cancer [Z12.31] Order(s):[facility] SCREENING [[id number]] Order #: [id number] FUTURE Prescriptions as of 03/20/2021 - levothyroxine (LEVOXYL) 75 mcg tablet Take 1 tablet by mouth once daily. TAKE ON AN EMPTY STOMACH. ID#[id number] - Levocetirizine (XYZAL) 5 mg tablet Take 1 tablet by mouth once daily as needed. In the evening - mometasone (NASONEX) 50 mcg/actuation nasal spray Use 2 Sprays in the nose once daily. Rinse mouth after use. Problem List As Of Date 03/17/2021 Noted Resolved Allergic rhinitis [J30.9] 03/18/2007 Nonspecific abnormal results of thyroid functio*09/22/2007 06/14/2016 Hypothyroidism [E03.9] Varicose veins of lower extremities with other *12/28/2011 VV (varicose veins) [I83.90] 06/14/2016 Dizziness and giddiness [R42] 06/14/2016 Class 1 obesity due to excess calories without *01/14/2018 Encounter Status:Closed by EPIC, PRODUSER on 03/20/21 [facility] 09-22-2007 History of Past i llness Narrative Problem Noted Date Resolved Date Nonspecific abnormal results of thyroid function study 09/22/2007 06/14/2016 VV (varicose veins) 06/14/2016 documented as of this encounter (statuses as of 06/01/2022) [facility] History of Past illness Narrative* Problem Noted Date Resolved Date Nonspecific abnormal results of thyroid function study 09/22/2007 06/14/2016 VV (varicose veins) 06/14/2016 documented as of this encounter (statuses as of 07/07/2022) [facility] History of Past illness Narrative* Problem Noted Date Resolved Date Nonspecific abnormal results of thyroid function study 09/22/2007 06/14/2016 VV (varicose veins) 06/14/2016 documented as of this encounter (statuses as of 11/16/2022) [facility] History of Past illness Narrative* Problem Noted Date Diagnosed Date Resolved Date Nonspecific abnormal results of thyroid function study 09/22/2007 06/14/2016 VV (varicose veins) 06/14/20 16 documented as of this encounter (statuses as of 06/04/2023) [facility] History of Past illness Narrative* Problem Noted Date Diagnosed Date Resolved Date Nonspecific abnormal results of thyroid function study 09/22/2007 06/14/2016 VV (varicose veins) 06/14/20 16 documented as of this encounter (statuses as of 06/12/2023) [facility] History of Past illness Narrative* Problem Noted Date Diagnosed Date Resolved Date Nonspecific abnormal results of thyroid function study 09/22/2007 06/14/2016 VV (varicose veins) 06/14/20 16 documented as of this encounter (statuses as of 06/30/2023) [facility] History of Past illness Narrative* Problem Noted Date Diagnosed Date Resolved Date Nonspecific abnormal results of thyroid function study 09/22/2007 06/14/2016 VV (varicose veins) 06/14/20 16 documented as of this encounter (statuses as of 11/04/2023) [facility] note* Diagnosis Acquired hypothyroidism- Primary Unspecified hypothyroidism Encounter for lipid screening for cardiovascular disease Screening for lipoid disorders Routine medical exam Routine general medical examination at a health care facility documented in this encounter [facility] noteNo assessment information availableWKing's [facility] [place] Work Phone: evaluation note* Diagnosis Routine medical exam- Primary Routine general medical examination at a health care facility Acquired hypothyroidism Unspecified hypothyroidism Class 1 obesity due to excess calories without serious comorbidity with body mass index (BMI) of 34.0 to 34.9 in adult Screening for colon cancer Special screening for malignant neoplasms, colon Special screening for malignant neoplasms, colon Screening, lipid Screening for lipoid disorders documented [facility] this encounter [facility]* Diagnosis Acquired hypothyroidism Unspecified hypothyroidism [facility]* Diagnosis IFG (impaired fasting glucose)- Primary Impaired fasting glucose [facility] this encounter [facility]* Diagnosis Onset Date Resolution Status Enlarged uterus acute Stress incontinence chronic [id number] noneactive [facility] Work Phone: evaluation note* Diagnosis Wellness examination- Primary Acquired hypothyroidism Unspecified hypothyroidism Obesity, Class II, BMI 35-39.9 Obesity, unspecified documented in this encounter [facility]* Diagnosis Special screening for malignant neoplasms, colon- Primary documented in this encounter [facility] note* Diagnosis Fatigue, unspecified type- Primary Acquired hypothyroidism Unspecified hypothyroidism IFG (impaired fasting glucose) Impaired fasting glucose Encounter for long-term current use of medication Encounter for vitamin deficiency screening Screening for other and unspecified endocrine, nutritional, metabolic, and immunity disorders documented [facility] this encounter [facility]* Diagnosis Need for hepatitis B screening test- Primary [facility] this encounter [facility]* Diagnosis Routine medical exam- Primary Routine general medical examination at a health care facility Acquired hypothyroidism Unspecified hypothyroidism IFG (impaired fasting glucose) Impaired fasting glucose Encounter for long-term current use of medication Vitamin D deficiency Unspecified vitamin D deficiency Varicose veins of both lower extremities with pain Varicose veins of lower extremities with other complications Screening for depression Encounter for screening examination for other mental health and behavioral disorders Class 2 obesity due to excess calories without serious comorbidity with body mass index (BMI) of 35.0 to 35.9 in adult [facility] Diagnosis Actinic skin damage- Primary Encounter for skin care Solar lentigo Other dyschromia Seborrheic keratosis Multiple benign melanocytic nevi of both upper extremities, both lower extremities, and trunk Philip angioma Scar Scar condition and fibrosis of skin Milia Sebaceous cyst Skin tags, multiple acquired [facility] Diagnosis Onset Date Resolution Status Admit Date Encounter for routine gynecological examination noneactive Octobe r 2024 10:05am [place] [facility] Work Phone: Progress note Author Haylie Clark [facility] Note Date/Time June 07, 2025 1 0:48am [facility] [address] [place] [address], [address] [place] [address] OFFICE VISIT Date of Service: 06/07/25 MR#: [id number] Acct: [id number] Name: MICHELA SCHMIDT Rep #: [id number] : 1975 Provider: Dr. 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) Acquisition Lead Required: No Is patient in pain?: No Allergies No Known Allergies Allergy (Verified 06/07/25 10:08) Medications ?Medication ?Instructions ?Recorded ?Confirmed ?Type levothyroxine 75 mcg tablet 112 mcg PO DAILY 06/25/22 06/07/25 History Is last menstrual period known: Yes Last Menstrual Period: 05/25/25 Post menopausal: No Patient : No : No Control Method: Vasectomy PFSH Medical History Thyroid disorder endovenous laser ablation therapy Surgical History H/O vein stripping H/O section History of wisdom tooth extraction, class IV edentulism History of cholecystectomy (~1996) Family History Father Heart disease Hypertension Diabetes Mother Hypertension Diabetes Hypercholesteremia Social History household members: family housing: house number of children: 3 current occupational status: employed 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 Date Name GA/Weeks Outcome Route Bth Weight Infant Gen Labor Lgth Anesthesia Del Locatn Provider FOB Unknown 06/26/2003 [place] Unknown 01/25/2003 [place] G Unknown 03/12/2011 [place] HPI Encounter for routine gynecological examination Details: MICHELA SCHMIDT is a 49 year old who presents for annual exam. Last PAP: 11/28/2020 - normal History of abnormal PAP: Last mammogram: 06/11/2024 - normal History of abnormal mammogram: Colon cancer screening: colonoscopy - at age 46, negative results Other preventative health care screenings: PCP Maryann Female Reproductive History Last Menstrual Period: 05/25/25 Cycle Length: 21-35 Bleeding Duration: 5 Questions: metrorrhagia: No, sexually active: Yes, dyspareunia: No and PCB: No Menopausal Symptoms: No hot flashes, No night sweats, No weight change, No mood changes, No difficulty concentrating, No sleep problems and No change in libido ROS Const Constitutional: Reports as per HPI; Denies fatigue, increased appetite, poor appetite, night sweats, weight gain or weight loss Cardio Card: Denies chest pain Resp Resp: Denies cough or dyspnea GI GI: Reports as per HPI; Denies abdominal pain, bloating, constipation, nausea or vomiting : Reports as per HPI, urinary incontinence and other; Denies difficulty voiding, dysuria, hematuria, hot flashes, nipple discharge, pelvic pain, prolapse symptoms, urinary frequency, urinary urgency, vaginal discharge, vaginal dryness, vaginal odor or vaginal pruritus Skin Skin/Breast: Denies changing lesions, breast mass, breast pain, breast skin changes or nipple discharge Psych Psych: Denies anxiety, change in libido, depression or difficulty concentrating Exam Const General: cooperative, healthy appearing, comfortable, no acute distress, well developed and well groomed HENNY Head: normal to inspection and normocephalic Ears: hearing grossly normal bilaterally and external ears normal Nose: external nose normal Face and sinus: normal facial exam Neck Neck: normal visual inspection, full ROM and no lymphadenopathy Thyroid: thyroid normal Chest Chest palpation & inspection: normal inspection of the chest Breast inspection: normal inspection of the breasts and normal inspection of theaxillae Breast palpation: normal palpation of the breasts, normal palpation of the axillae and no axillary lymphadenopathy Resp Effort & Inspection: normal respiratory effort GI Inspection: normal to inspection and non-distended Palpation: soft, no hepatosplenomegaly and no guarding General: bladder normal to palpation External Female Exam: normal external appearance, normal appearance of the urethra and no lesions Urethra: normal appearance of the urethra and normal palpation Speculum Exam - Vagina: normal appearance of the vagina and normal vaginal discharge Speculum Exam - Cervix: normal appearance of the cervix, no cervical discharge, no lesions and nontender Bimanual Exam- Vagina & Uterus: normal bimanual exam, bladder normal to palpation, No tender, uterine mobility normal, consistency normal, non-tender and no cervical motion tenderness Bimanual Exam- Adnexa, other: normal adnexae, no masses and non-tender Skin General: no rashes or lesions noted Neuro General: patient alert, moves all extremities and no focal motor deficits Extrem General: normal to inspection and no pedal edema Psych Appearance: grossly normal Mental Status: mental status grossly normal Affect: normal affect Speech and Movement: speech and movement normal Attitude: cooperative Coding Level of Care Code Off vis,est,prev 40-64yrs Diagnoses Encounter for gynecological examination without abnormal finding Z01.419 Gynecological examination findings: abnormal findings ABSENT Assessment and Plan Assessment and Plan (1) Encounter for routine gynecological examination: Qualifiers: Gynecological examination findings: abnormal findings ABSENT Qualified Code(s): Z01.419 - Encounter for gynecological examination (general) (routine) without abnormal findings Orders: Orders SCRN MAMM (CAD)W/RICO BILAT Today Z12.31 - Encounter for screening mammogram for malignant neoplasm of breast PAP IG HPV APTIMA 16/18,45 Today Z12.4 - Encounter for screening for malignant neoplasm of cervix Plan Cervical cancer screening: pap hpv Breast cancer screening: mamm discussed menopause expetations other health maintenance examination reviewed and orders placed if needed. Encouraged maintenance of a healthy weight and active lifestyle and handout given. Annual exam handout including recommendations for good health guidelines, Calcium/vitamin D recommendations, and basic screening information given. Problem list up to date, see problem list details for any additional plan information. Follow up in one year for annual health maintenance exam or sooner if needed. 06/07/25 1048 <Electronically signed by Haylie whitley MD> Date _ Haylie Clark MD Cosigner Signature: Date (if applicable) CC: ~ [place] [facility] Work Phone: [facility] for referral (narrative)* Outpatient Procedure (Routine) - Authorized Specialty Diagnoses / Procedures Referred By Mark noyola Referred To Contact [facility] Diagnoses Special screening for malignant neoplasms, colon Procedures COLONOSCOPY SCREENING COLONOSCOPY FLX DX W/COLLJ SPEC WHEN Joesph Garcia MD [address] [place] [address] [facility] [place] [address] [place] [address] Referral ID Status Reason Start Date Expiration Date Visits Requested Visits Authorized [id number] Authorized Auto-Generat ed Referral 2 06/06/2023 1 1 [facility] for referral (narrative)* Outpatient Procedure (Routine) - Closed Specialty Diagnoses / Procedures Referred By Mark noyola Referred To Contact [facility] Diagnoses Special screening for malignant neoplasms, colon Procedures COLONOSCOPY SCREENING COLONOSCOPY FLX DX W/COLLJ SPEC WHEN Joesph Garcia MD [address] [place] [address] [facility] [id number] [place] [address] Referral ID Status Reason Start Date Expiration Date V isits Requested Visits Authorized [id number] Closed Auto-Generate d Referral 06/06/2022 06/06/2023 1 1 [facility] ([facility]No reason for referral information availableReid [facility] Work Phone: Reason for visit Narrative* Outpatient Procedure (Routine) - Closed Specialty Diagnoses / Procedures Referred By Mark noyola Referred To Contact [facility] Diagnoses Special screening for malignant neoplasms, colon Procedures COLONOSCOPY SCREENING COLONOSCOPY FLX DX W/COLLJ SPEC WHEN Joesph Garcia MD [address] [place] [address] [facility] [address] [address] Referral ID Status Reason Start Date Expiration Date V isits Requested Visits Authorized [id number] Closed Auto-Generate d Referral 06/06/2022 06/06/2023 1 1 [facility] Summary Purpose Family History No Family History Records Found Relationship Condition Age at Onset Recorded Date/T nedra father Cardiac disease Unknown Hypertension Unknown Diabetes mellitus Unknown mother Hypertension Unknown Hypercholesterolemia Unknown Advance Directives No Advanced Directives Records FoundNo Advanced Directives Records FoundNo Advanced Directives Records Found Chief Complaint and Reason for Visit Chief Complaint SCREENING Chief Complaint SCREENING Annual (MANDREL CLEANER) *pt states ins ok for date Reason for Visit Enlarged uterus Stress incontinence [id number] Chief Complaint SCREENING Annual (MANDREL CLEANER) *pt states ins ok for date HYPERTROPHY OF UTERUS Reason for Visit Enlarged uterus Stress incontinence [id number] Chief Complaint Admit Date Annual (MANDREL CLEANER) June 07, 2025 1 0:05am Reason for Visit Admit Date Encounter for routine gynecological exam ination June 07, 2025 10:05am Medications Administered Section Inactive Administered Medications - up to 3 most recent administrations Medication Order MAR Action Action Date Dose Rate Site diphenhydrAMINE 12.5-50 mg injection (BENADRYL) 12.5-50 mg, INTRAVENOUS, DIRECTED, Starting on Sat08/07/22 at 1200, Until Sat08/07/22 at 1559, DOSING DIRECTED BY PHYSICIAN FOR PROCEDURAL SEDATION ONLY, Intraprocedure Given by [facility] 08/07/2022 12:03 PM EST 50 mg fentaNYL 50 mcg/mL 25-100 mcg injection (SUBLIMAZE) 25-100 mcg, INTRAVENOUS, DIRECTED, Starting on Sat08/07/22 at 1200, Until Sat08/07/22 at 1559, DOSING DIRECTED BY PHYSICIAN FOR PROCEDURAL SEDATION ONLY, Intraprocedure Given by [facility] 08/07/2022 12:01 PM EST 50 mcg Given by [facility] 08/07/2022 11:58 AM EST 50 mcg lactated ringers iv infusion 30 mL/hr, INTRAVENOUS, CONTINUOUS, Starting on Sat08/07/22 at 1100, Until Sat08/07/22 at 1236, Preprocedure New Bag/Syringe/Bottle 08/07/2022 11:15 AM EST 30 mL/hr 30 mL/hr Wrist, Right midazolam (PF) 1-5 mg injection (VERSED) 1-5 mg, INTRAVENOUS, DIRECTED, Starting on Sat08/07/22 at 1200, Until Sat08/07/22 at 1559, DOSING DIRECTED BY PHYSICIAN FOR PROCEDURAL SEDATION ONLY, Intraprocedure Given by [facility] 08/07/2022 12:01 PM EST 2 mg Given by [facility] 08/07/2022 11:58 AM EST 3 mg Reason for Referral Specialty Diagnoses / Procedures Referred By Mark noyola Referred To Contact Vascular Surgery Diagnoses Varicose veins of both lower extremities with pain Procedures CONSULT TO VASCULAR SURGERY OFFICE/OUTPATIENT [facility] 60 MINUTES Joesph Wolf MD [address] [place] [address] Referral ID Status Reason Start Date Expiration Date Visits Requested Visits Authorized [id number] Authorized PCP Requested Referral 06/24/2025 1 1 Additional Source Comments INFORMATION SOURCE (unrecogn ized section and content) DATE CREATED AUTHOR 11/12/2021 [facility] DATE CREATED AUTHOR 'S ORGANIZ ATION 12/29/2024 [facility] DATE CREATED AUTHOR AUTHOR'S ORGANIZ ATION 06/24/2025 [facility] Source Comments (unrecognize d section and content) In the event this informatio n is protected by the Federal Confidentiality of Alcohol and Drug Abuse Patient Records regulations: The Federal rules restrict any use of the information to criminally investigate or prosecute any alcohol or drug abuse patient.[facility] the event this information is protected by the Federal Confidentiality of Alcohol and Drug Abuse Patient Records regulations: The Federal rules restrict any use of the information to criminally investigate or prosecute any alcohol or drug abuse patient.[facility] Hospital[facility] the event this information is protected by the Federal Confidentiality of Alcohol and Drug Abuse Patient Records regulations: The Federal rules restrict any use of the information to criminally investigate or prosecute any alcohol or drug abuse patient.[facility] the event this information is protected by the Federal Confidentiality of Alcohol and Drug Abuse Patient Records regulations: The Federal rules restrict any use of the information to criminally investigate or prosecute any alcohol or drug abuse patient.[facility] Hospital[facility] the event this information is protected by the Federal Confidentiality of Alcohol and Drug Abuse Patient Records regulations: The Federal rules restrict any use of the information to criminally investigate or prosecute any alcohol or drug abuse patient.[facility] Hospital[facility] the event this information is protected by the Federal Confidentiality of Alcohol and Drug Abuse Patient Records regulations: The Federal rules restrict any use of the information to criminally investigate or prosecute any alcohol or drug abuse patient.[facility] HospitalIn the event this information is protected by the Federal Confidentiality of Alcohol and Drug Abuse Patient Records regulations: The Federal rules restrict any use of the information to criminally investigate or prosecute any alcohol or drug abuse patient.[facility] Hospital[facility] the event this information is protected by the Federal Confidentiality of Alcohol and Drug Abuse Patient Records regulations: The Federal rules restrict any use of the information to criminally investigate or prosecute any alcohol or drug abuse patient.[facility] Hospital[facility] the event this information is protected by the Federal Confidentiality of Alcohol and Drug Abuse Patient Records regulations: The Federal rules restrict any use of the information to criminally investigate or prosecute any alcohol or drug abuse patient.[facility] Hospital[facility] the event this information is protected by the Federal Confidentiality of Alcohol and Drug Abuse Patient Records regulations: The Federal rules restrict any use of the information to criminally investigate or prosecute any alcohol or drug abuse patient.[facility] Hospital[facility] the event this information is protected by the Federal Confidentiality of Alcohol and Drug Abuse Patient Records regulations: The Federal rules restrict any use of the information to criminally investigate or prosecute any alcohol or drug abuse patient.[facility] Reason for Visit (unrecogniz ed section and content) Reason Onset Date Comments Refill Request 06/01/2022 Reason Comments Yearly Exam Reason Comments Add-on lab order request Reason Comments Physical Reason Comments Patient Question Reason Onset Date Comments Refill Request 12/20/2023 Reason Comments Orders Reason Comments Follow-up MARKUS-11/20/2022,ZB Care Teams (unrecognized sec tion and content) V Belt Finisher Relationship Specialty Start Date End Date Joesph Wolf MD [address] [facility], [place] [id number] PCP - General 08/09/07 V Belt Finisher Relationship Specialty Start Date End Date Joesph Wolf MD [address] [facility], [place] [id number] PCP - General 08/09/07 V Belt Finisher Relationship Specialty Start Date End Date Joesph Wolf MD [address] [facility], [place] [id number] PCP - General 08/09/07 V Belt Finisher Relationship Specialty Start Date End Date Joesph Wolf MD [address] [place], [place] [id number] PCP - General 08/09/07 Team Status: Active Member Role Status Dates Dr. Joesph Wolf MD Family Provider Active Dr. Joesph Wolf MD Primary Care Provider Active Team Status: Inactive Member Role Status Dates Dr. Joesph Wolf MD Primary Care Provider, Referr ing Provider Active Dr. Haylie Clark MD Attending Provider Active Team Status: Inactive Member Role Status Dates Dr. Joesph Wolf MD Primary Care Provider Active Dr. Haylie Clark MD Attending Provider, Referr ing Provider Active Team Status: Active Member Role Status Dates Dr. Joesph Wolf MD Primary Care Provider Active Dr. Haylie Clark MD Attending Provider, Referr ing Provider Active V Belt Finisher Relationship Specialty Start Date End Date Joesph Wolf MD [address] [facility], [place] [id number] PCP - General 08/09/07 V Belt Finisher Relationship Specialty Start Date End Date Joesph Wolf MD [address] [place], [place] [address] PCP - General 08/09/07 V Belt Finisher Relationship Specialty Start Date End Date Joesph Wolf MD [address] [place], [place] [id number] PCP - General 08/09/07 V Belt Finisher Relationship Specialty Start Date End Date Joesph Wolf MD [address] [place] [address] PCP - General 08/09/07 V Belt Finisher Relationship Specialty Start Date End Date Joesph Wolf MD [address] [place] [address] PCP - General 08/09/07 V Belt Finisher Relationship Specialty Start Date End Date Joesph Wolf [address] [place], [place] [address] PCP - General Internal Medicine 11/20/22 Team Status: Active Member Role/Relationship Status Dates Dr. Joesph Wolf MD Primary care physician Active Team Status: Inactive Member Role/Relationship Status Dates Dr. Joesph Wolf MD Primary care physician Active Start: June 07, 2025 End: June 07, 2025 Dr. Joesph Wolf MD Referring Provider Active Start: June 07, 2025 End: June 07, 2025 Dr. Haylie Clark MD Attending physician Active Start: June 07, 2025 End: June 07, 2025 Team Status: Active Member Role/Relationship Status Dates Dr. Joesph Wolf MD Primary care physician Active Start: June 07, 2025 Dr. Haylie Clark MD Attending physician Active Start: June 07, 2025 Dr. Haylie Clark MD Referring Provider Active Start: June 07, 2025 Goals (unrecognized section and content) Goals may be documented in a n alternate sectionGoals may be documented in an alternate sectionGoals may be documented in an alternate sectionGoals may be documented in an alternate sectionGoals may be documented in an alternate section FOR RECORDS PERTAINING TO PATIENTS WHO ARE OR HAVE BEEN ENROLLED IN A CHEMICAL DEPENDENCY/SUBSTANCEABUSE PROGRAM, SOME INFORMATION MAY BE OMITTED. This clinical summary was aggregated from multiple sources. Caution should be exercised in using it in the provision of clinical care. This summary normalizes information from multiple sources, and as a consequence, information in this document may materially change the coding, format and clinical context of patient data. In addition, data may be omitted in some cases. CLINICAL DECISIONS SHOULD BE BASED ON THE PRIMARY CLINICAL RECORDS. [facility]. provides no warranty or guarantee of the accuracy or completeness of information in this document.
== END | disposition home or self-care (01) ==
LOC: OPBI 08:13
PROVIDERS: PCP Internal Medicine; Referring Provider Obstetrics & Gynecology; Visit Provider Obstetrics & Gynecology
DX: Z12.31 Encounter for screening mammogram for malignant neoplasm of breast (principal)
CPT/HCPCS: 77063; 77067